=== PATIENT | male | born 1935 | race Caucasian/White ===

== ENCOUNTER 2021-07-27 14:23 | Inpatient (IN) | payer MEDICARE ==
[~2021-07-27] VITALS: Ht 185.4 cm; Wt 83.6 kg
[2021-07-27] VITALS (10 sets, daily range): BP systolic 168–195; BP diastolic 69–95
[2021-07-27] MEDS ORDERED: normal saline 1000ml 1,000 ML IV ONE (14:50)
[2021-07-27] MEDS ORDERED: FENTANYL CITRATE/D5W/PF 100 ML IV PRN (14:55)
[2021-07-27] MEDS ORDERED: DOPamine 400mg/D5W 250ml 250 ML IV PRN ×2 (14:55→14:59)
[2021-07-27 15:07] LABS: BASOPHILS % (AUTO) 0.1 % (0-1); EOSINOPHILS % (AUTO) 0 % (0-6); HEMATOCRIT 32.9 % (42.0-52.0); HEMOGLOBIN 11.3 g/dl (14.0-17.9); LYMPHOCYTES # (AUTO) 0.6 X10'3 (1.1-4.8); LYMPHOCYTES % (AUTO) 8.8 % (21-51); MEAN CORPUSCULAR HEMOGLOBIN 34.2 PG (27.0-31.0); MEAN CORPUSCULAR HGB CONC 34.3 g/dL (33.0-36.5); MEAN CORPUSCULAR VOLUME 99.8 FL (78-98); MEAN PLATELET VOLUME 8.9 FL (7.4-10.4); MONOCYTES # (AUTO) 0.5 X10'3 (0-0.9); MONOCYTES % (AUTO) 6.9 % (2-12); NEUTROPHILS # (AUTO) 5.9 X10'3 (1.8-7.7); NEUTROPHILS % (AUTO) 84.2 % (42-75); PLATELET COUNT 132 X10'3 (140-440); RED BLOOD COUNT 3.29 X10'6 (4.70-6.10); RED CELL DISTRIBUTION WIDTH 13.5 % (11.5-14.5)
--- NOTE | 2021-07-27 15:09 | NUR ---
[phone] KENROY ANIKET (DAUGHTER) PLEASE CALL WHEN AVAILABLE
[2021-07-27] MEDS ORDERED: FENTANYL-0.9 % NACL/PF 100 ML IV PRN (15:11)
[2021-07-27 15:14] LABS: APTT 27 SECONDS (22-32)
[2021-07-27 15:16] LABS: ALANINE AMINOTRANSFERASE 20 U/L (12-78); ALBUMIN/GLOBULIN RATIO 0.9 (1.1-1.5); ALKALINE PHOSPHATASE 17 IU/L (46-116); ANION GAP 8 (8-16); ASPARTATE AMINO TRANSFERASE 26 U/L (10-37); BILIRUBIN,TOTAL 1.1 MG/DL (0.1-1.0); BLOOD UREA NITROGEN 35 MG/DL (7-18); BUN/CREATININE RATIO 25.5 (5.4-32.0); CALCIUM 7.7 MG/DL (8.5-10.1); CHLORIDE 106 MMOL/L (99-107); CREATININE 1.37 MG/DL (0.60-1.10); GLUCOSE 173 MG/DL (70-104); POTASSIUM 3.7 MMOL/L (3.5-5.1); SODIUM 141 MMOL/L (135-145); TOTAL CARBON DIOXIDE 26.7 MMOL/L (24-32); TOTAL PROTEIN 6.2 G/DL (6.4-8.2); eGFR 50 ML/MIN
[2021-07-27 15:25] LABS: MAGNESIUM 2.2 MG/DL (1.5-2.4)
[2021-07-27] MEDS ORDERED: midazolam 1 mg/ML 2ml injection ONE ×2 (16:19→17:26)
[2021-07-27] MEDS ORDERED: fentaNYL/PF 50MCG/1 ML 2ML syringe ONE (16:19)
[2021-07-27] MEDS ORDERED: ceFAZolin 1000mg inj ONE (16:19)
[2021-07-27] MEDS ORDERED: LIDOcaine 1% w/EPI 1:100,000 30ml vial (MDV) ONE (16:21)
[2021-07-27] MEDS ORDERED: ceFAZolin 1GM/D5W- ADD-VANTAGE 50 ML IV ONE (16:54)
[2021-07-27] MEDS ORDERED: potassium Cl 20 mEq SR tablet PO PRN ×2 (17:50)
[2021-07-27] MEDS ORDERED: magnesium Cl slow-release 64mg tablet PO PRN (17:50)
[2021-07-27] MEDS: normal saline 1000ml 1,000 ML IV SCH ×2 (17:50→19:20)
[2021-07-27] MEDS ORDERED: HYDROcodone/acetaminophen 10/325mg tab PO PRN (17:50)
[2021-07-27] MEDS ORDERED: metoclopramide 5 mg/ml inj IV PRN (17:50)
[2021-07-27] MEDS ORDERED: ondansetron 4mg rapidly disintigrating tab PO PRN (17:50)
[2021-07-27] MEDS ORDERED: ondansetron/PF 4mg/2ml inj IV PRN (17:50)
[2021-07-27] MEDS ORDERED: magnesium hydroxide 30ml (MOM) UD suspension PO PRN (17:50)
[2021-07-27] MEDS ORDERED: potassium CL 10mEq/100ml bag 100 ML IV PRN (17:50)
[2021-07-27] MEDS ORDERED: magnesium 4gm in 100ml NS 100 ML IV PRN (17:50)
[2021-07-27] MEDS ORDERED: magnesium 2GM in 50ml NS 50 ML IV PRN (17:50)
[2021-07-27] MEDS ORDERED: mag hydrox/Alum hydrox/simeth 30ml oral suspension PO PRN (17:50)
[2021-07-27] MEDS ORDERED: HYDROcodone/acetaminophen 5mg/325mg tablet PO PRN ×2 (17:50→19:20)
[2021-07-27] MEDS ORDERED: NO HOME MEDS PO (18:33)
[2021-07-27] MEDS: K and/or MAG REPLACEMENT MC SCH (20:00)
[2021-07-27] MEDS: docusate sod 100mg capsule PO SCH (20:00)
--- NOTE | 2021-07-27 20:58 | NUR ---
Page sent to Dr Dave PAGER ID: [phone] MESSAGE: [phone] [place] [address] Pt's post insertion of pacemaker has a blood pressure of 195/69. Has no PRN's for elevated BP. Please be advised. Thank you
--- NOTE | 2021-07-27 22:07 | NUR ---
Page sent to Dr. Dave PAGER ID: [phone] MESSAGE: [phone] MarcelJoseph [phone] Pt's disoriented & agitated. Has a sling on his left arm to refrain him from lifting his arm above his shoulder but this hasn't helped 100%. Also I would like to get an update on blood pressure med for him.Thanks
[2021-07-27] MEDS: temazepam 15mg capsule PO PRN (22:37)
--- NOTE | 2021-07-27 22:58 | NUR ---
Page sent to Dr. Dave PAGER ID: [phone] MESSAGE: [phone] Joseph Rod [phone] Pt is very agitated and confused. He has started hitting the sitter and has been attempting to get off the bed. He has no PRN medication for anxiety/agitation in his emar. Please be advised. Thank you
[2021-07-27] MEDS ORDERED: lisinopril 10 MG tablet PO ONE (23:05)
--- NOTE | 2021-07-27 23:30 | NUR ---
PT WAS VERY AGITIATED, HITTING NURSE AND AIDE. HE STATED HE NEED TO VOID. HE HAD A SADLER. IT APPEARED TO BE WORKING INITIALLY, BUT AFTER A SHORT WHILE IT HE WAS STILL FEELING PRESSURE AND VOIDING AROUND CATHETER. SADLER D'C AND PT STATED HE WAS MUCH MORE COMFORTABLE AND SETTLED DOWN AND RESTED.
[2021-07-28] VITALS (14 sets, daily range): BP systolic 129–187; BP diastolic 57–103
--- NOTE | 2021-07-28 | NUR ---
Page sent to Dr. Dave PAGER ID: [phone] MESSAGE: [phone] Joseph Champion [phone] Pharmacist called and said that the only available Geodon they have is 20 mg and it comes in capsules. You ordered Geodon 10 mg. Please be advised. Thank you
[2021-07-28] MEDS ORDERED: ziprasidone IM 20mg inj **IM only IM ONE ×4 (00:05→17:00)
[2021-07-28] MEDS: ceFAZolin/D5W- 1GM premix 50 ML IV SCH ×3 (00:18→15:49)
[2021-07-28] MEDS: normal saline 1000ml 1,000 ML IV SCH ×5 (03:50→23:50)
--- NOTE | 2021-07-28 04:21 | NUR ---
Page sent to Dr. Dave PAGER ID: [phone] MESSAGE: [phone] Joseph Rod [phone] Pt is increasingly agitated. Geodon 10mg wasn't given as such med is only available in 20mg capsule. Pt would benefit from any anti-anxiety agents. Perhaps, ativan? Please be advised. Thank you
--- NOTE | 2021-07-28 06:38 | NUR ---
Problems reprioritized. Patient report given, questions answered & plan of care reviewed with Sapphire MORLEY.
[2021-07-28 06:53] LABS: HEMATOCRIT 32.4 % (42.0-52.0); HEMOGLOBIN 11.2 g/dl (14.0-17.9); MEAN CORPUSCULAR HEMOGLOBIN 34.7 PG (27.0-31.0); MEAN CORPUSCULAR VOLUME 100.2 FL (78-98); RED BLOOD COUNT 3.23 X10'6 (4.70-6.10)
[2021-07-28 06:54] LABS: MEAN CORPUSCULAR HGB CONC 34.7 g/dL (33.0-36.5); MEAN PLATELET VOLUME 8.3 FL (7.4-10.4); PLATELET COUNT 141 X10'3 (140-440); RED CELL DISTRIBUTION WIDTH 13.7 % (11.5-14.5)
[2021-07-28 07:13] LABS: ALBUMIN 2.9 G/DL (3.4-5.0); ANION GAP 9 (8-16); BLOOD UREA NITROGEN 32 MG/DL (7-18); BUN/CREATININE RATIO 24.4 (5.4-32.0); CALCIUM 8.1 MG/DL (8.5-10.1); CHLORIDE 108 MMOL/L (99-107); CHOL/HDL RATIO 2.8 (0.00-4.99); CHOLESTEROL 171 MG/DL (0-200); CREATININE 1.31 MG/DL (0.60-1.10); GLUCOSE 106 MG/DL (70-104); HDL CHOLESTEROL 62 MG/DL (35-60); LDL CHOLESTEROL 91 MG/DL (50-100); MAGNESIUM 2.3 MG/DL (1.5-2.4); POTASSIUM 3.8 MMOL/L (3.5-5.1); SODIUM 144 MMOL/L (135-145); TOTAL CARBON DIOXIDE 26.9 MMOL/L (24-32); TRIGLYCERIDES 43 MG/DL (20-135); eGFR 52 ML/MIN
[2021-07-28] MEDS: docusate sod 100mg capsule PO SCH ×2 (08:00→19:55)
[2021-07-28] MEDS: K and/or MAG REPLACEMENT MC SCH ×2 (08:00→20:00)
[2021-07-28 08:13] LABS: BASOPHILS % (AUTO) 0 % (0-1); EOSINOPHILS % (AUTO) 0.1 % (0-6); LYMPHOCYTES # (AUTO) 0.8 X10'3 (1.1-4.8); MONOCYTES # (AUTO) 0.8 X10'3 (0-0.9); MONOCYTES % (AUTO) 11.3 % (2-12); NEUTROPHILS # (AUTO) 5.3 X10'3 (1.8-7.7); NEUTROPHILS % (AUTO) 76.6 % (42-75)
--- NOTE | 2021-07-28 10:49 | NUR ---
Bladder scanner showed 241 ml
--- NOTE | 2021-07-28 11:45 | NUR ---
PAGER ID: [phone] MESSAGE: Patient Joseph Champion's BP still continues to be elevated at 171/68 HR 67. Sapphire ext [phone]
[2021-07-28] MEDS: lisinopril 20mg tablet PO SCH (12:00)
[2021-07-28] MEDS: amLODIPine 5mg tablet PO SCH (12:00)
--- NOTE | 2021-07-28 13:23 | NUR ---
PAGER ID: [phone] MESSAGE: Janneth Champion room 3010 needs restraint order LUISA, is pulling at surgical site and is trying to strike at the sitter. Sapphire Ext [phone]
[2021-07-28] MEDS: LORazepam 2 mg/ml vial IV PRN (15:49)
--- NOTE | 2021-07-28 18:30 | NUR ---
Patient in room PCU 3010. I have received report from Sapphire MORLEY and had the opportunity to ask questions and assume patient care.
--- NOTE | 2021-07-28 18:48 | NUR ---
Problems reprioritized. Patient report given, questions answered & plan of care reviewed with Natalia MORLEY.
[2021-07-29] MEDS: LORazepam 2 mg/ml vial IV PRN ×2 (00:31→21:43)
[2021-07-29] MEDS: normal saline 1000ml 1,000 ML IV SCH ×3 (01:20→21:20)
[2021-07-29 02:00] VITALS: BP 158/89
[2021-07-29 06:00] VITALS: BP 152/79
--- NOTE | 2021-07-29 06:27 | NUR ---
Problems reprioritized. Patient report given, questions answered & plan of care reviewed with Arsh MORLEY.
[2021-07-29 06:53] LABS: HEMATOCRIT 35.9 % (42.0-52.0); HEMOGLOBIN 12.3 g/dl (14.0-17.9); MEAN CORPUSCULAR HEMOGLOBIN 34.2 PG (27.0-31.0); MEAN CORPUSCULAR HGB CONC 34.4 g/dL (33.0-36.5); MEAN CORPUSCULAR VOLUME 99.4 FL (78-98); MEAN PLATELET VOLUME 8.3 FL (7.4-10.4); PLATELET COUNT 162 X10'3 (140-440); RED BLOOD COUNT 3.61 X10'6 (4.70-6.10); RED CELL DISTRIBUTION WIDTH 13.6 % (11.5-14.5); WHITE BLOOD COUNT 7.7 X10'3 (4.5-11.0)
[2021-07-29 07:21] LABS: ANION GAP 9 (8-16); BLOOD UREA NITROGEN 25 MG/DL (7-18); BUN/CREATININE RATIO 21.4 (5.4-32.0); CALCIUM 8.6 MG/DL (8.5-10.1); CHLORIDE 109 MMOL/L (99-107); CREATININE 1.17 MG/DL (0.60-1.10); GLUCOSE 119 MG/DL (70-104); MAGNESIUM 2.2 MG/DL (1.5-2.4); POTASSIUM 4.3 MMOL/L (3.5-5.1); SODIUM 146 MMOL/L (135-145); TOTAL CARBON DIOXIDE 28.3 MMOL/L (24-32); eGFR 60 ML/MIN
[2021-07-29] MEDS: K and/or MAG REPLACEMENT MC SCH ×2 (08:00→20:00)
[2021-07-29] MEDS: amLODIPine 5mg tablet PO SCH (08:18)
[2021-07-29] MEDS: lisinopril 20mg tablet PO SCH (08:18)
[2021-07-29] MEDS: docusate sod 100mg capsule PO SCH ×2 (08:18→21:33)
[2021-07-29 11:00] VITALS: BP 153/76
[2021-07-29 15:00] VITALS: BP 141/87
[2021-07-29 18:00] VITALS: BP 154/85
--- NOTE | 2021-07-29 18:18 | NUR ---
Patient in room PCU 3010. I have received report from Arsh MORLEY and had the opportunity to ask questions and assume patient care.
[2021-07-29] MEDS: cephalexin 500mg capsule PO SCH (21:33)
[2021-07-29 22:00] VITALS: BP 161/87
[2021-07-30 02:00] VITALS: BP 170/79
[2021-07-30] MEDS: normal saline 1000ml 1,000 ML IV SCH ×4 (05:50→18:00)
[2021-07-30 06:00] VITALS: BP 168/70
--- NOTE | 2021-07-30 06:12 | NUR ---
Problems reprioritized. Patient report given, questions answered & plan of care reviewed with Arsh MORLEY.
[2021-07-30 07:12] LABS: HEMATOCRIT 37.8 % (42.0-52.0); HEMOGLOBIN 12.8 g/dl (14.0-17.9); MEAN CORPUSCULAR HEMOGLOBIN 33.7 PG (27.0-31.0); MEAN CORPUSCULAR VOLUME 99.1 FL (78-98); MEAN PLATELET VOLUME 8.1 FL (7.4-10.4); PLATELET COUNT 154 X10'3 (140-440); RED BLOOD COUNT 3.81 X10'6 (4.70-6.10); RED CELL DISTRIBUTION WIDTH 13.9 % (11.5-14.5); WHITE BLOOD COUNT 7.7 X10'3 (4.5-11.0)
[2021-07-30 07:24] LABS: ALBUMIN 2.5 G/DL (3.4-5.0); ANION GAP 6 (8-16); BLOOD UREA NITROGEN 23 MG/DL (7-18); BUN/CREATININE RATIO 20.2 (5.4-32.0); CALCIUM 8.3 MG/DL (8.5-10.1); CHLORIDE 108 MMOL/L (99-107); CREATININE 1.14 MG/DL (0.60-1.10); GLUCOSE 104 MG/DL (70-104); MAGNESIUM 2.1 MG/DL (1.5-2.4); POTASSIUM 3.7 MMOL/L (3.5-5.1); SODIUM 142 MMOL/L (135-145); eGFR 61 ML/MIN
[2021-07-30] MEDS: K and/or MAG REPLACEMENT MC SCH ×2 (08:00→20:00)
[2021-07-30] MEDS: amLODIPine 5mg tablet PO SCH (08:30)
[2021-07-30] MEDS: cephalexin 500mg capsule PO SCH ×2 (08:30→19:24)
[2021-07-30] MEDS: docusate sod 100mg capsule PO SCH ×2 (08:30→19:24)
[2021-07-30] MEDS: lisinopril 20mg tablet PO SCH (08:30)
[2021-07-30 11:00] VITALS: BP 164/61
[2021-07-30] MEDS ORDERED: NOR5T PO (13:37)
[2021-07-30] MEDS ORDERED: LISI20TA28 PO (13:37)
[2021-07-30] MEDS ORDERED: CEPH-585 PO (13:37)
[2021-07-30 15:00] VITALS: BP 163/64
[2021-07-30 18:00] VITALS: BP 174/88
--- NOTE | 2021-07-30 19:17 | NUR ---
Problems reprioritized. Patient report given, questions answered & plan of care reviewed with ANGELICA MORLEY.
[2021-07-30] MEDS: lactobacillus rhamnosus 10,000 MMU CELLS/CAPSULE PO SCH (19:24)
[2021-07-30] MEDS: HYDROcodone/acetaminophen 10/325mg tab PO PRN (19:24)
[2021-07-30] MEDS: LORazepam 2 mg/ml vial IV PRN (20:30)
[2021-07-30 22:00] VITALS: BP 168/85
[2021-07-31] MEDS: normal saline 1000ml 1,000 ML IV SCH ×6 (01:50→21:50)
[2021-07-31 02:00] VITALS: BP 175/87
[2021-07-31] MEDS: LORazepam 2 mg/ml vial IV PRN (05:08)
--- NOTE | 2021-07-31 06:33 | NUR ---
Problems reprioritized. Patient report given, questions answered & plan of care reviewed with Margarita MORLEY .
--- NOTE | 2021-07-31 07:19 | NUR ---
Patient in room PCU 3010. I have received report from Abigail MORLEY and had the opportunity to ask questions and assume patient care.
[2021-07-31 07:20] VITALS: BP 142/90
[2021-07-31] MEDS: K and/or MAG REPLACEMENT MC SCH ×2 (08:00→20:00)
[2021-07-31 08:15] LABS: ALBUMIN 2.5 G/DL (3.4-5.0); ANION GAP 11 (8-16); BLOOD UREA NITROGEN 31 MG/DL (7-18); BUN/CREATININE RATIO 28.2 (5.4-32.0); CALCIUM 8.5 MG/DL (8.5-10.1); CHLORIDE 109 MMOL/L (99-107); GLUCOSE 124 MG/DL (70-104); MAGNESIUM 2.1 MG/DL (1.5-2.4); POTASSIUM 3.9 MMOL/L (3.5-5.1); SODIUM 144 MMOL/L (135-145); TOTAL CARBON DIOXIDE 23.6 MMOL/L (24-32); eGFR 64 ML/MIN
[2021-07-31 08:42] LABS: HEMATOCRIT 38.3 % (42.0-52.0); HEMOGLOBIN 13.1 g/dl (14.0-17.9); MEAN CORPUSCULAR HEMOGLOBIN 33.8 PG (27.0-31.0); MEAN CORPUSCULAR HGB CONC 34.2 g/dL (33.0-36.5); MEAN PLATELET VOLUME 9.1 FL (7.4-10.4); PLATELET COUNT 148 X10'3 (140-440); RED BLOOD COUNT 3.87 X10'6 (4.70-6.10); RED CELL DISTRIBUTION WIDTH 14.1 % (11.5-14.5); WHITE BLOOD COUNT 9.8 X10'3 (4.5-11.0)
[2021-07-31] MEDS: lactobacillus rhamnosus 10,000 MMU CELLS/CAPSULE PO SCH ×2 (09:02→20:00)
[2021-07-31] MEDS: lisinopril 20mg tablet PO SCH (09:02)
[2021-07-31] MEDS: cephalexin 500mg capsule PO SCH ×2 (09:02→20:00)
[2021-07-31] MEDS: docusate sod 100mg capsule PO SCH ×2 (09:03→20:00)
[2021-07-31] MEDS: amLODIPine 5mg tablet PO SCH (09:03)
[2021-07-31 11:31] VITALS: BP 168/82
[2021-07-31 16:00] VITALS: BP 164/90
[2021-07-31 18:00] VITALS: BP 176/90
--- NOTE | 2021-07-31 18:30 | NUR ---
Received pt in bed lethargic and confused at the same time, pt has removed his access and gown. Pt arousal to stimuli , PM care done and linen change, condom cath placed. Charge nurse notified of pt's need for a sitter.
--- NOTE | 2021-07-31 18:51 | NUR ---
Problems reprioritized. Patient report given, questions answered & plan of care reviewed with Abigail MORLEY[].
[2021-07-31 22:00] VITALS: BP 107/83
[2021-08-01 02:00] VITALS: BP 156/78
--- NOTE | 2021-08-01 03:30 | NUR ---
Pt still lethargic with period of confusion and mild agitation , continues to remove lines , frequent rounding in progress. Left arm in sling as ordered. IV fluid in progress.
[2021-08-01 06:00] VITALS: BP 166/94
[2021-08-01 07:07] LABS: HEMATOCRIT 36.2 % (42.0-52.0); HEMOGLOBIN 12.2 g/dl (14.0-17.9); MEAN CORPUSCULAR HEMOGLOBIN 33.5 PG (27.0-31.0); MEAN CORPUSCULAR HGB CONC 33.6 g/dL (33.0-36.5); MEAN CORPUSCULAR VOLUME 99.6 FL (78-98); MEAN PLATELET VOLUME 8.4 FL (7.4-10.4); PLATELET COUNT 163 X10'3 (140-440); RED BLOOD COUNT 3.63 X10'6 (4.70-6.10); RED CELL DISTRIBUTION WIDTH 13.8 % (11.5-14.5); WHITE BLOOD COUNT 9.2 X10'3 (4.5-11.0)
[2021-08-01 07:28] LABS: ALBUMIN 2.3 G/DL (3.4-5.0); ANION GAP 8 (8-16); BLOOD UREA NITROGEN 31 MG/DL (7-18); BUN/CREATININE RATIO 26.7 (5.4-32.0); CALCIUM 8.2 MG/DL (8.5-10.1); CHLORIDE 113 MMOL/L (99-107); CREATININE 1.16 MG/DL (0.60-1.10); GLUCOSE 111 MG/DL (70-104); SODIUM 148 MMOL/L (135-145); TOTAL CARBON DIOXIDE 26.7 MMOL/L (24-32); eGFR 60 ML/MIN
[2021-08-01 07:30] LABS: POTASSIUM 3.6 MMOL/L (3.5-5.1)
[2021-08-01] MEDS: normal saline 1000ml 1,000 ML IV SCH ×4 (07:50→19:58)
[2021-08-01] MEDS: K and/or MAG REPLACEMENT MC SCH ×2 (08:00→20:00)
[2021-08-01] MEDS: lactobacillus rhamnosus 10,000 MMU CELLS/CAPSULE PO SCH ×2 (08:32→19:52)
[2021-08-01] MEDS: cephalexin 500mg capsule PO SCH ×2 (08:32→19:52)
[2021-08-01] MEDS: lisinopril 20mg tablet PO SCH (08:32)
[2021-08-01] MEDS: docusate sod 100mg capsule PO SCH ×2 (08:32→19:52)
[2021-08-01] MEDS: amLODIPine 5mg tablet PO SCH (08:33)
[2021-08-01 11:00] VITALS: BP 135/71
[2021-08-01] MEDS: acetaminophen 325mg tablet PO PRN (14:29)
[2021-08-01] MEDS: hydrOXYzine 10 MG tablet PO PRN (14:33)
--- NOTE | 2021-08-01 16:00 | NUR ---
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 Placed on pureed/nectar thick/heart healthy diet per CANE PILER/MD recs PO ~25% avg meals past 4 days w/ decline to 0% since last night not meeting needs. RD recommends Ensure Enlive TIDWM; MD notified. Would benefit from liberalizing to regular diet if MD agreeable given poor PO trends w/ lipid panel WNL and no cardiac hx in H&P. Andres 12 w/ skin intact per EMR. LBM 07/31 receiving routine colace. Will continue to monitor for PO trends and additional nutrition intervention needs. Rec: 1. liberalize to regular/pureed/nectar thick diet given poor PO trends; encourage PO receiving total assistance w/ meals 2. Ensure Enlive TIDWM; nectar thick per CANE PILER recs; pending MD verification in EMR 3. routine bowel care 4. weekly wts Addendum: 08/01/21 at [address] Amended: Links added.
[2021-08-01 17:04] VITALS: BP 158/93
[2021-08-01 18:00] VITALS: BP 168/80
[2021-08-01] MEDS: lactose-reduced food (Ensure Enlive) - 237ml bottle PO SCH (18:10)
--- NOTE | 2021-08-01 18:30 | NUR ---
Pt in bed AAOx1 daughter at bedside conversing with pt. Radha presents. Daughter complaining that the doctor has not informed the family about the pt's test result and discharge planning. Daughter instructed to call her brother for update since information was given to him about pt' status. Call to her brother was made for the information about test result.and I left the room after checking the pt.
--- NOTE | 2021-08-01 18:32 | NUR ---
Problems reprioritized. Patient report given, questions answered & plan of care reviewed with Paz MORLEY.
[2021-08-01] MEDS: HYDROcodone/acetaminophen 10/325mg tab PO PRN (19:53)
[2021-08-01 22:00] VITALS: BP 152/87
[2021-08-02 02:00] VITALS: BP 162/85
--- NOTE | 2021-08-02 02:30 | NUR ---
temp 100.[address] Carranza; order given. Pt pending CBC, blood and urine culture. Condom catheter applied for urine collection. and chest X Ray done. Tylenol given . Continue to monitor pt's temperature
[2021-08-02] MEDS: acetaminophen 325mg tablet PO PRN ×2 (03:03→14:55)
[2021-08-02] MEDS: normal saline 1000ml 1,000 ML IV SCH ×4 (03:50→15:20)
--- NOTE | 2021-08-02 05:30 | NUR ---
Pt voided; urine and CBC collected and sent to lab. AM care, linen change done. Pt asleep arousal PRN. No sings of distress noted
[2021-08-02 05:41] LABS: CLARITY,URINE CLEAR (Clear); COLOR,URINE YELLOW (Yellow); GLUCOSE, URINE NEGATIVE (Neg); KETONES,URINE TRACE mg/dl (Neg); LEUKOCYTE ESTERASE ,URINE NEGATIVE (Neg); NITRITES, URINE NEGATIVE (Neg); OCCULT BLOOD,URINE LARGE (Neg); PROTEIN,URINE >=300 mg/dl (Neg)
[2021-08-02 05:45] LABS: EOSINOPHILS % (AUTO) 0.3 % (0-6); LYMPHOCYTES # (AUTO) 1.9 X10'3 (1.1-4.8)
[2021-08-02 05:48] LABS: BASOPHILS % (AUTO) 0.4 % (0-1); HEMATOCRIT 36.9 % (42.0-52.0); HEMOGLOBIN 12.5 g/dl (14.0-17.9); LYMPHOCYTES % (AUTO) 16.5 % (21-51); MEAN CORPUSCULAR HEMOGLOBIN 33.6 PG (27.0-31.0); MEAN CORPUSCULAR HGB CONC 33.8 g/dL (33.0-36.5); MEAN CORPUSCULAR VOLUME 99.6 FL (78-98); MEAN PLATELET VOLUME 8.8 FL (7.4-10.4); MONOCYTES # (AUTO) 1.2 X10'3 (0-0.9); NEUTROPHILS # (AUTO) 8.4 X10'3 (1.8-7.7); NEUTROPHILS % (AUTO) 72.8 % (42-75); PLATELET COUNT 162 X10'3 (140-440); RED CELL DISTRIBUTION WIDTH 14.2 % (11.5-14.5); WHITE BLOOD COUNT 11.5 X10'3 (4.5-11.0)
[2021-08-02 05:58] LABS: UA COLLECTION TYPE NON-SPECIFIED
[2021-08-02 05:59] LABS: BACTERIA,URINE NONE SEEN /HPF (Neg); HYALINE CASTS 0-3 /LPF (NEGATIVE); MUCUS STRANDS FEW /LPF (Neg); RBC,URINE 0-2 /HPF (0-2); SQUAMOUS EPITHELIAL CELL,UR FEW /LPF (FEW); WBC,URINE 0-4 /HPF (0-4)
--- NOTE | 2021-08-02 06:28 | NUR ---
Patient in room PCU 3025. I have received report from MILLI Mullen and had the opportunity to ask questions and assume patient care.
[2021-08-02 06:45] VITALS: BP 152/64
[2021-08-02] MEDS: K and/or MAG REPLACEMENT MC SCH ×2 (07:11→20:00)
[2021-08-02] MEDS: CefTRIAXone/D5W-Rocephin 1gm 50 ML IV SCH (07:20)
[2021-08-02] MEDS: lactobacillus rhamnosus 10,000 MMU CELLS/CAPSULE PO SCH ×2 (07:25→19:07)
[2021-08-02] MEDS: cephalexin 500mg capsule PO SCH (07:25)
[2021-08-02] MEDS: lisinopril 20mg tablet PO SCH (07:25)
[2021-08-02] MEDS: docusate sod 100mg capsule PO SCH ×2 (07:25→19:07)
[2021-08-02] MEDS: amLODIPine 5mg tablet PO SCH (07:25)
[2021-08-02] MEDS: lactose-reduced food (Ensure Enlive) - 237ml bottle PO SCH ×3 (08:00→18:39)
--- NOTE | 2021-08-02 10:45 | NUR ---
Patient removes gown and per sitter at bedside with patient's room mate, patient removes left arm sling when on. Gown is placed back on patient but patient continues to remove gown. Patient does allow for gown and bedsheet to be pulled up and placed on top but does not like gown placed properly on. Patient appears to be resting comfortably. Will continue to monitor.
[2021-08-02 11:00] VITALS: BP 153/77
[2021-08-02 14:55] VITALS: BP 152/69
--- NOTE | 2021-08-02 15:47 | NUR ---
PAGER ID: [phone] MESSAGE: [phone]- Joseph Champion- [phone] temp 101.3 ax. Tylenol given. Cool wash cloths to forehead and chest. Cxray was done at 0300 and shows pneumonia. Pt on Keflex PO and Rocephin. Thank you- Coleen [phone]
[2021-08-02] MEDS: hydrOXYzine 10 MG tablet PO PRN (17:48)
--- NOTE | 2021-08-02 17:58 | NUR ---
Patient is alert and awake. He is only oriented to his name. Patient asking where he is and why he is here. Oriented patient and explained to patient why he was admitted and that his son and daughter are aware. Also let him know that daughter Christina was here to visit earlier. Patient appears to be anxious and shaky stating "they did this to me. They wanted me here. This is ridiculous." Patient requested that his daughter be called. Sitter called and left message for daughter Christina to call back. Patient able to feed self and drank a pitcher of water. Patient given atarax of anxiety as ordered. Patient eating dinner at this time. Will continue to monitor.
[2021-08-02 18:40] VITALS: BP 142/84
--- NOTE | 2021-08-02 18:40 | NUR ---
Patient in room U 3025. I have received report from MILLI Horne and had the opportunity to ask questions and assume patient care. Addendum: 08/02/21 at 1934 by Mariluz Fisher RN Amended: Links added.
--- NOTE | 2021-08-02 18:40 | NUR ---
Problems reprioritized. Patient report given, questions answered & plan of care reviewed with MILLI Mcallister.
[2021-08-02] MEDS: dextrose 5%-1/4 normal saline 1,000 ML IV SCH (18:56)
--- NOTE | 2021-08-02 19:28 | NUR ---
Pt repositioned,ate few bites of dinner and some ensure, will try again. drinking water without difficulty. alert, confused to place and time, demetris knows in hospital. refuses oral care at this time. Addendum: 08/02/21 at 1933 by Mariluz Fisher RN Amended: Links added.
[2021-08-02 22:00] VITALS: BP 148/73
[2021-08-03] MEDS: normal saline 1000ml 1,000 ML IV SCH ×3 (00:34→19:59)
[2021-08-03 02:30] VITALS: BP 150/66
--- NOTE | 2021-08-03 03:00 | NUR ---
Pt feeling warm to touch, temp retaken 101.1 axillary. tylenol given, pt very aggitated, atarax given with pudding. drank water without difficulty. Addendum: 08/03/21 at 0338 by Mariluz Fisher RN Amended: Links added.
[2021-08-03] MEDS: acetaminophen 325mg tablet PO PRN ×3 (03:09→23:36)
[2021-08-03] MEDS: hydrOXYzine 10 MG tablet PO PRN (03:10)
[2021-08-03] MEDS: dextrose 5%-1/4 normal saline 1,000 ML IV SCH ×2 (04:50→08:11)
[2021-08-03 06:00] VITALS: BP 143/85
--- NOTE | 2021-08-03 06:17 | NUR ---
Problems reprioritized. Patient report given, questions answered & plan of care reviewed with MILLI Anderson. Addendum: 08/03/21 at 0617 by Mariluz Fisher RN Amended: Links added.
--- NOTE | 2021-08-03 06:35 | NUR ---
Patient in room PCU 3025. I have received report from Ary MORLEY and had the opportunity to ask questions and assume patient care.
[2021-08-03] MEDS: K and/or MAG REPLACEMENT MC SCH ×3 (08:00→19:58)
[2021-08-03] MEDS: lactose-reduced food (Ensure Enlive) - 237ml bottle PO SCH ×3 (08:00→18:00)
[2021-08-03] MEDS: CefTRIAXone/D5W-Rocephin 1gm 50 ML IV SCH (09:25)
[2021-08-03] MEDS: amLODIPine 5mg tablet PO SCH (09:27)
[2021-08-03] MEDS: lisinopril 20mg tablet PO SCH (09:27)
[2021-08-03] MEDS: lactobacillus rhamnosus 10,000 MMU CELLS/CAPSULE PO SCH ×2 (09:27→21:58)
[2021-08-03] MEDS: docusate sod 100mg capsule PO SCH ×2 (09:27→21:58)
[2021-08-03 10:55] LABS: BASOPHILS % (AUTO) 0.2 % (0-1); EOSINOPHILS # (AUTO) 0.2 X10'3 (0-0.9); EOSINOPHILS % (AUTO) 1.9 % (0-6); HEMATOCRIT 33.2 % (42.0-52.0); HEMOGLOBIN 11.3 g/dl (14.0-17.9); LYMPHOCYTES # (AUTO) 1.7 X10'3 (1.1-4.8); LYMPHOCYTES % (AUTO) 19.7 % (21-51); MEAN CORPUSCULAR HGB CONC 34.1 g/dL (33.0-36.5); MEAN CORPUSCULAR VOLUME 99.7 FL (78-98); MEAN PLATELET VOLUME 8.4 FL (7.4-10.4); MONOCYTES # (AUTO) 0.8 X10'3 (0-0.9); MONOCYTES % (AUTO) 9.2 % (2-12); NEUTROPHILS # (AUTO) 5.8 X10'3 (1.8-7.7); PLATELET COUNT 167 X10'3 (140-440); RED BLOOD COUNT 3.33 X10'6 (4.70-6.10); RED CELL DISTRIBUTION WIDTH 14.2 % (11.5-14.5); WHITE BLOOD COUNT 8.4 X10'3 (4.5-11.0)
[2021-08-03 10:58] VITALS: BP 140/69
[2021-08-03 11:18] LABS: ALANINE AMINOTRANSFERASE 17 U/L (12-78); ALBUMIN 2.1 G/DL (3.4-5.0); ALBUMIN/GLOBULIN RATIO 0.6 (1.1-1.5); ALKALINE PHOSPHATASE 18 IU/L (46-116); ANION GAP 6 (8-16); ASPARTATE AMINO TRANSFERASE 26 U/L (10-37); BILIRUBIN,TOTAL 0.7 MG/DL (0.1-1.0); BLOOD UREA NITROGEN 25 MG/DL (7-18); CALCIUM 7.8 MG/DL (8.5-10.1); CHLORIDE 109 MMOL/L (99-107); CREATININE 1.25 MG/DL (0.60-1.10); GLUCOSE 142 MG/DL (70-104); POTASSIUM 3.1 MMOL/L (3.5-5.1); SODIUM 143 MMOL/L (135-145); TOTAL CARBON DIOXIDE 28.2 MMOL/L (24-32); TOTAL PROTEIN 5.4 G/DL (6.4-8.2); eGFR 55 ML/MIN
[2021-08-03 15:00] VITALS: BP 149/79
--- NOTE | 2021-08-03 15:47 | NUR ---
Paged Dr. Mckinney PAGER ID: [phone] MESSAGE: LAYA Anderson RN ext [phone]. RE: Joseph Champion. Patient K 3.1 today. He also did not have BM since 07/27/21. Can we have order for K replacement protocol and Dulcolax suppository PRN?
[2021-08-03] MEDS ORDERED: potassium Cl 40MEQ/1/2NS 520ml 520 ML IV PRN (15:50)
[2021-08-03] MEDS ORDERED: magnesium 2GM in 50ml NS 50 ML IV PRN (15:50)
[2021-08-03] MEDS ORDERED: magnesium Cl slow-release 64mg tablet PO PRN (15:50)
[2021-08-03] MEDS ORDERED: potassium Cl 20 mEq SR tablet PO PRN (15:50)
[2021-08-03] MEDS ORDERED: magnesium 4gm in 100ml NS 100 ML IV PRN (15:50)
[2021-08-03] MEDS ORDERED: bisacodyl 10mg suppository rectal RC PRN (15:50)
[2021-08-03] MEDS: potassium Cl 20 mEq SR tablet PO PRN (16:03)
--- NOTE | 2021-08-03 17:00 | NUR ---
Patient expressed wish to go home but patient did not know where exactly he is at and when is his birthday. Patient still confused at this time
--- NOTE | 2021-08-03 18:47 | NUR ---
Problems reprioritized. Patient report given, questions answered & plan of care reviewed with Yaritza MORLEY.
[2021-08-03 22:00] VITALS: BP 105/75
[2021-08-04] MEDS: potassium Cl 20 mEq SR tablet PO PRN ×2 (00:38→05:23)
[2021-08-04 02:00] VITALS: BP 131/64
[2021-08-04] MEDS: dextrose 5%-1/4 normal saline 1,000 ML IV SCH ×2 (05:52→18:20)
[2021-08-04 06:00] VITALS: BP 130/76
--- NOTE | 2021-08-04 06:30 | NUR ---
Patient in room PCU 3025. I have received report from Yaritza MORLEY and had the opportunity to ask questions and assume patient care.
[2021-08-04 06:46] LABS: BASOPHILS % (AUTO) 0.2 % (0-1); EOSINOPHILS # (AUTO) 0.3 X10'3 (0-0.9); EOSINOPHILS % (AUTO) 3.3 % (0-6); HEMATOCRIT 33.3 % (42.0-52.0); HEMOGLOBIN 11.6 g/dl (14.0-17.9); LYMPHOCYTES # (AUTO) 1.8 X10'3 (1.1-4.8); LYMPHOCYTES % (AUTO) 22.2 % (21-51); MEAN CORPUSCULAR HEMOGLOBIN 34.2 PG (27.0-31.0); MEAN CORPUSCULAR HGB CONC 34.8 g/dL (33.0-36.5); MEAN CORPUSCULAR VOLUME 98.3 FL (78-98); MEAN PLATELET VOLUME 8.4 FL (7.4-10.4); MONOCYTES # (AUTO) 0.7 X10'3 (0-0.9); MONOCYTES % (AUTO) 8.7 % (2-12); NEUTROPHILS # (AUTO) 5.3 X10'3 (1.8-7.7); NEUTROPHILS % (AUTO) 65.6 % (42-75); PLATELET COUNT 168 X10'3 (140-440); RED BLOOD COUNT 3.38 X10'6 (4.70-6.10); RED CELL DISTRIBUTION WIDTH 13.9 % (11.5-14.5); WHITE BLOOD COUNT 8.1 X10'3 (4.5-11.0)
[2021-08-04 07:12] LABS: ALANINE AMINOTRANSFERASE 19 U/L (12-78); ALBUMIN 2.2 G/DL (3.4-5.0); ALBUMIN/GLOBULIN RATIO 0.6 (1.1-1.5); ALKALINE PHOSPHATASE 21 IU/L (46-116); ANION GAP 5 (8-16); ASPARTATE AMINO TRANSFERASE 36 U/L (10-37); BILIRUBIN,TOTAL 0.8 MG/DL (0.1-1.0); BLOOD UREA NITROGEN 25 MG/DL (7-18); BUN/CREATININE RATIO 20.2 (5.4-32.0); CHLORIDE 108 MMOL/L (99-107); CREATININE 1.24 MG/DL (0.60-1.10); GLUCOSE 102 MG/DL (70-104); POTASSIUM 3.6 MMOL/L (3.5-5.1); SODIUM 142 MMOL/L (135-145); TOTAL CARBON DIOXIDE 28.9 MMOL/L (24-32); TOTAL PROTEIN 5.7 G/DL (6.4-8.2); eGFR 56 ML/MIN
[2021-08-04] MEDS: normal saline 1000ml 1,000 ML IV SCH ×2 (07:20→16:06)
[2021-08-04] MEDS: lactose-reduced food (Ensure Enlive) - 237ml bottle PO SCH ×3 (08:00→18:17)
[2021-08-04] MEDS: K and/or MAG REPLACEMENT MC SCH ×4 (08:00→19:40)
[2021-08-04] MEDS: CefTRIAXone/D5W-Rocephin 1gm 50 ML IV SCH (08:14)
[2021-08-04] MEDS: lactobacillus rhamnosus 10,000 MMU CELLS/CAPSULE PO SCH ×2 (08:14→19:26)
[2021-08-04] MEDS: amLODIPine 5mg tablet PO SCH (08:16)
[2021-08-04] MEDS: lisinopril 20mg tablet PO SCH (08:17)
[2021-08-04] MEDS: docusate sod 100mg capsule PO SCH ×2 (08:25→19:28)
[2021-08-04 11:00] VITALS: BP 137/77
[2021-08-04 15:00] VITALS: BP 119/75
--- NOTE | 2021-08-04 17:16 | NUR ---
PAGER ID: [phone] MESSAGE: James Dave pt. in room [id number] Palmer, Adrian is screaming and that he wants to leave, I educated him on the importance of staying and is still yelling out. Thanks Mariana ASIF
[2021-08-04 18:00] VITALS: BP 141/73
--- NOTE | 2021-08-04 18:32 | NUR ---
Problems reprioritized. Patient report given Abigail MORLEY, questions answered & plan of care reviewed with Abigail MORLEY. Pt. safe and stable at time of change of shift.
[2021-08-04] MEDS: temazepam 15mg capsule PO PRN (19:26)
[2021-08-04] MEDS: acetaminophen 325mg tablet PO PRN (19:27)
[2021-08-04] MEDS: LORazepam 2 mg/ml vial IV PRN (19:27)
[2021-08-04 22:00] VITALS: BP 139/64
[2021-08-05 02:00] VITALS: BP 129/60
[2021-08-05] MEDS: normal saline 1000ml 1,000 ML IV SCH ×3 (03:20→23:20)
[2021-08-05 06:00] VITALS: BP 148/69
[2021-08-05 06:12] LABS: BASOPHILS % (AUTO) 0.2 % (0-1); EOSINOPHILS # (AUTO) 0.3 X10'3 (0-0.9); EOSINOPHILS % (AUTO) 4.3 % (0-6); HEMATOCRIT 32.4 % (42.0-52.0); HEMOGLOBIN 11.2 g/dl (14.0-17.9); LYMPHOCYTES # (AUTO) 1.8 X10'3 (1.1-4.8); LYMPHOCYTES % (AUTO) 24.5 % (21-51); MEAN CORPUSCULAR HEMOGLOBIN 34.1 PG (27.0-31.0); MEAN CORPUSCULAR HGB CONC 34.6 g/dL (33.0-36.5); MEAN CORPUSCULAR VOLUME 98.4 FL (78-98); MEAN PLATELET VOLUME 8.3 FL (7.4-10.4); MONOCYTES # (AUTO) 0.7 X10'3 (0-0.9); MONOCYTES % (AUTO) 9.4 % (2-12); NEUTROPHILS # (AUTO) 4.6 X10'3 (1.8-7.7); NEUTROPHILS % (AUTO) 61.6 % (42-75); PLATELET COUNT 170 X10'3 (140-440); RED BLOOD COUNT 3.29 X10'6 (4.70-6.10); RED CELL DISTRIBUTION WIDTH 13.9 % (11.5-14.5); WHITE BLOOD COUNT 7.5 X10'3 (4.5-11.0)
[2021-08-05 06:26] LABS: ANION GAP 6 (8-16); BLOOD UREA NITROGEN 27 MG/DL (7-18); CHLORIDE 103 MMOL/L (99-107); CREATININE 1.21 MG/DL (0.60-1.10); GLUCOSE 95 MG/DL (70-104); SODIUM 137 MMOL/L (135-145); TOTAL CARBON DIOXIDE 28.5 MMOL/L (24-32)
[2021-08-05 06:27] LABS: ALANINE AMINOTRANSFERASE 28 U/L (12-78); ALBUMIN/GLOBULIN RATIO 0.6 (1.1-1.5); ALKALINE PHOSPHATASE 27 IU/L (46-116); ASPARTATE AMINO TRANSFERASE 39 U/L (10-37); BILIRUBIN,TOTAL 0.6 MG/DL (0.1-1.0); BUN/CREATININE RATIO 22.3 (5.4-32.0); CALCIUM 8.3 MG/DL (8.5-10.1); TOTAL PROTEIN 5.4 G/DL (6.4-8.2); eGFR 57 ML/MIN
--- NOTE | 2021-08-05 06:27 | NUR ---
Problems reprioritized. Patient report given, questions answered & plan of care reviewed with Sapphire MORLEY .
[2021-08-05] MEDS: dextrose 5%-1/4 normal saline 1,000 ML IV SCH ×2 (06:50→21:36)
--- NOTE | 2021-08-05 06:52 | NUR ---
Patient in room PCU 3025. I have received report from Abigail MORLEY and had the opportunity to ask questions and assume patient care.
[2021-08-05] MEDS: CefTRIAXone/D5W-Rocephin 1gm 50 ML IV SCH (07:51)
[2021-08-05] MEDS: docusate sod 100mg capsule PO SCH ×2 (07:56→20:00)
[2021-08-05] MEDS: lactobacillus rhamnosus 10,000 MMU CELLS/CAPSULE PO SCH ×2 (07:56→20:00)
[2021-08-05] MEDS: amLODIPine 5mg tablet PO SCH (07:56)
[2021-08-05] MEDS: lisinopril 20mg tablet PO SCH (07:56)
[2021-08-05] MEDS: K and/or MAG REPLACEMENT MC SCH ×4 (08:00→20:00)
[2021-08-05] MEDS: lactose-reduced food (Ensure Enlive) - 237ml bottle PO SCH ×3 (08:00→18:00)
[2021-08-05 11:00] VITALS: BP 143/66
--- NOTE | 2021-08-05 11:15 | NUR ---
Reassessment: Pt seen by CASE PICKER 08/04 and upgraded to MM5/thin liquids. Pt still w/ low PO intake, avg 23% x 9 meals and 65% x 7 ONS which meets approximately 68% of est energy needs and 85% of est protein needs. Last documented BM 07/27 receiving routine colace and PRN MoM 08/02. D/w RN additional bowel care if MD agreeable as constipation may be impacting PO intake. No change to nutrition recommendations at this time, will continue to monitor. Rec: 1. liberalize to regular/MM5 given poor PO trends 2. Ensure Enlive TIDWM 3. routine bowel care; 9 days constipation 4. weekly wts Addendum: 08/05/21 at [address] Amended: Links added.
[2021-08-05 15:00] VITALS: BP 133/64
[2021-08-05 18:00] VITALS: BP 144/73
--- NOTE | 2021-08-05 18:31 | NUR ---
Problems reprioritized. Patient report given, questions answered & plan of care reviewed with Brittny MORLEY.
[2021-08-05] MEDS: LORazepam 2 mg/ml vial IV PRN (21:36)
[2021-08-05 22:00] VITALS: BP 126/72
[2021-08-06 02:00] VITALS: BP 126/55
[2021-08-06 06:00] VITALS: BP 123/72
--- NOTE | 2021-08-06 06:23 | NUR ---
Problems reprioritized. Patient report given, questions answered & plan of care reviewed with MILLI Peña.
[2021-08-06 07:09] LABS: BASOPHILS % (AUTO) 0.3 % (0-1); EOSINOPHILS # (AUTO) 0.3 X10'3 (0-0.9); EOSINOPHILS % (AUTO) 4.5 % (0-6); HEMATOCRIT 33.4 % (42.0-52.0); HEMOGLOBIN 11.5 g/dl (14.0-17.9); LYMPHOCYTES # (AUTO) 1.5 X10'3 (1.1-4.8); LYMPHOCYTES % (AUTO) 22.2 % (21-51); MEAN CORPUSCULAR HEMOGLOBIN 33.8 PG (27.0-31.0); MEAN CORPUSCULAR HGB CONC 34.3 g/dL (33.0-36.5); MEAN CORPUSCULAR VOLUME 98.6 FL (78-98); MEAN PLATELET VOLUME 8.2 FL (7.4-10.4); MONOCYTES # (AUTO) 0.9 X10'3 (0-0.9); MONOCYTES % (AUTO) 12.4 % (2-12); NEUTROPHILS # (AUTO) 4.2 X10'3 (1.8-7.7); NEUTROPHILS % (AUTO) 60.6 % (42-75); PLATELET COUNT 180 X10'3 (140-440); RED BLOOD COUNT 3.39 X10'6 (4.70-6.10); RED CELL DISTRIBUTION WIDTH 13.6 % (11.5-14.5)
[2021-08-06 07:40] LABS: ALANINE AMINOTRANSFERASE 17 U/L (12-78); ALKALINE PHOSPHATASE 27 IU/L (46-116); ASPARTATE AMINO TRANSFERASE 29 U/L (10-37); BILIRUBIN,TOTAL 0.5 MG/DL (0.1-1.0); BLOOD UREA NITROGEN 23 MG/DL (7-18); BUN/CREATININE RATIO 21.7 (5.4-32.0); CHLORIDE 101 MMOL/L (99-107); CREATININE 1.06 MG/DL (0.60-1.10); GLUCOSE 111 MG/DL (70-104); SODIUM 133 MMOL/L (135-145); TOTAL PROTEIN 5.3 G/DL (6.4-8.2); eGFR 67 ML/MIN
[2021-08-06] MEDS: dextrose 5%-1/4 normal saline 1,000 ML IV SCH ×2 (07:50→20:20)
[2021-08-06] MEDS: K and/or MAG REPLACEMENT MC SCH ×4 (07:56→21:00)
[2021-08-06] MEDS: lisinopril 20mg tablet PO SCH (08:07)
[2021-08-06] MEDS: CefTRIAXone/D5W-Rocephin 1gm 50 ML IV SCH (08:07)
[2021-08-06] MEDS: docusate sod 100mg capsule PO SCH ×2 (08:08→20:59)
[2021-08-06] MEDS: amLODIPine 5mg tablet PO SCH (08:08)
[2021-08-06] MEDS: lactobacillus rhamnosus 10,000 MMU CELLS/CAPSULE PO SCH ×2 (08:08→20:59)
[2021-08-06 09:11] LABS: ALBUMIN 1.8 G/DL (3.4-5.0); ALBUMIN/GLOBULIN RATIO 0.5 (1.1-1.5); ANION GAP 9 (8-16); TOTAL CARBON DIOXIDE 22.8 MMOL/L (24-32)
[2021-08-06] MEDS: lactose-reduced food (Ensure Enlive) - 237ml bottle PO SCH ×3 (10:00→14:04)
--- NOTE | 2021-08-06 10:35 | NUR ---
Verbal order to d/c NS order running at 100;
[2021-08-06 11:26] VITALS: BP 121/68
[2021-08-06 15:00] VITALS: BP 153/87
--- NOTE | 2021-08-06 18:40 | NUR ---
Problems reprioritized. Patient report given to Brittny RN, questions answered & plan of care reviewed with Brittny. Pt. safe and stable at time of change of shift.
[2021-08-06 19:00] VITALS: BP 144/69
[2021-08-06 23:00] VITALS: BP 148/65
[2021-08-07 03:00] VITALS: BP 143/71
[2021-08-07] MEDS: dextrose 5%-1/4 normal saline 1,000 ML IV SCH ×2 (03:19→21:20)
[2021-08-07 06:00] VITALS: BP 146/87
[2021-08-07 06:31] LABS: BASOPHILS % (AUTO) 0.2 % (0-1); EOSINOPHILS # (AUTO) 0.3 X10'3 (0-0.9); EOSINOPHILS % (AUTO) 3.9 % (0-6); HEMATOCRIT 31.5 % (42.0-52.0); HEMOGLOBIN 10.9 g/dl (14.0-17.9); LYMPHOCYTES # (AUTO) 1.5 X10'3 (1.1-4.8); LYMPHOCYTES % (AUTO) 22.8 % (21-51); MEAN CORPUSCULAR HEMOGLOBIN 33.4 PG (27.0-31.0); MEAN CORPUSCULAR HGB CONC 34.7 g/dL (33.0-36.5); MEAN CORPUSCULAR VOLUME 96.3 FL (78-98); MEAN PLATELET VOLUME 8.6 FL (7.4-10.4); MONOCYTES # (AUTO) 0.7 X10'3 (0-0.9); MONOCYTES % (AUTO) 11.2 % (2-12); NEUTROPHILS % (AUTO) 61.9 % (42-75); PLATELET COUNT 204 X10'3 (140-440); RED BLOOD COUNT 3.27 X10'6 (4.70-6.10); RED CELL DISTRIBUTION WIDTH 13.6 % (11.5-14.5); WHITE BLOOD COUNT 6.4 X10'3 (4.5-11.0)
[2021-08-07 06:40] LABS: ALANINE AMINOTRANSFERASE 24 U/L (12-78); ALBUMIN/GLOBULIN RATIO 0.6 (1.1-1.5); ALKALINE PHOSPHATASE 28 IU/L (46-116); ANION GAP 8 (8-16); ASPARTATE AMINO TRANSFERASE 37 U/L (10-37); BILIRUBIN,TOTAL 0.5 MG/DL (0.1-1.0); BLOOD UREA NITROGEN 21 MG/DL (7-18); BUN/CREATININE RATIO 20.2 (5.4-32.0); CALCIUM 8.2 MG/DL (8.5-10.1); CHLORIDE 101 MMOL/L (99-107); CREATININE 1.04 MG/DL (0.60-1.10); GLUCOSE 106 MG/DL (70-104); POTASSIUM 3.8 MMOL/L (3.5-5.1); SODIUM 136 MMOL/L (135-145); TOTAL CARBON DIOXIDE 26.8 MMOL/L (24-32); TOTAL PROTEIN 5.3 G/DL (6.4-8.2); eGFR 68 ML/MIN
[2021-08-07] MEDS: K and/or MAG REPLACEMENT MC SCH ×4 (08:00→19:23)
[2021-08-07] MEDS: CefTRIAXone/D5W-Rocephin 1gm 50 ML IV SCH (08:58)
[2021-08-07] MEDS: lisinopril 20mg tablet PO SCH (08:58)
[2021-08-07] MEDS: docusate sod 100mg capsule PO SCH ×2 (08:58→19:36)
[2021-08-07] MEDS: amLODIPine 5mg tablet PO SCH (08:59)
[2021-08-07] MEDS: lactose-reduced food (Ensure Enlive) - 237ml bottle PO SCH ×3 (08:59→18:32)
[2021-08-07] MEDS: lactobacillus rhamnosus 10,000 MMU CELLS/CAPSULE PO SCH ×2 (08:59→19:36)
[2021-08-07 11:00] VITALS: BP 131/56
[2021-08-07 15:00] VITALS: BP 128/62
[2021-08-07 18:00] VITALS: BP 121/86
[2021-08-07] MEDS ORDERED: LORazepam 2 mg/ml vial IV ONE (19:20)
[2021-08-07] MEDS: LORazepam 2 mg/ml vial IV PRN (22:54)
[2021-08-08 02:00] VITALS: BP 114/92
--- NOTE | 2021-08-08 06:30 | NUR ---
Patient in room PCU 3025. I have received report from Zita MORLEY and had the opportunity to ask questions and assume patient care.
[2021-08-08 07:00] VITALS: BP 145/80
[2021-08-08 07:22] LABS: BASOPHILS % (AUTO) 0.2 % (0-1); EOSINOPHILS # (AUTO) 0.2 X10'3 (0-0.9); EOSINOPHILS % (AUTO) 4.4 % (0-6); HEMATOCRIT 30.9 % (42.0-52.0); HEMOGLOBIN 10.6 g/dl (14.0-17.9); LYMPHOCYTES # (AUTO) 1.3 X10'3 (1.1-4.8); LYMPHOCYTES % (AUTO) 25.7 % (21-51); MEAN CORPUSCULAR HEMOGLOBIN 33.6 PG (27.0-31.0); MEAN CORPUSCULAR HGB CONC 34.3 g/dL (33.0-36.5); MEAN CORPUSCULAR VOLUME 98.1 FL (78-98); MEAN PLATELET VOLUME 8.1 FL (7.4-10.4); MONOCYTES # (AUTO) 0.6 X10'3 (0-0.9); MONOCYTES % (AUTO) 12.1 % (2-12); NEUTROPHILS # (AUTO) 2.9 X10'3 (1.8-7.7); NEUTROPHILS % (AUTO) 57.6 % (42-75); PLATELET COUNT 199 X10'3 (140-440); RED BLOOD COUNT 3.14 X10'6 (4.70-6.10); RED CELL DISTRIBUTION WIDTH 13.5 % (11.5-14.5); WHITE BLOOD COUNT 5.1 X10'3 (4.5-11.0)
[2021-08-08 07:53] LABS: ALANINE AMINOTRANSFERASE 20 U/L (12-78); ALBUMIN 1.9 G/DL (3.4-5.0); ALBUMIN/GLOBULIN RATIO 0.6 (1.1-1.5); ALKALINE PHOSPHATASE 29 IU/L (46-116); ANION GAP 6 (8-16); ASPARTATE AMINO TRANSFERASE 26 U/L (10-37); BILIRUBIN,TOTAL 0.5 MG/DL (0.1-1.0); BLOOD UREA NITROGEN 19 MG/DL (7-18); BUN/CREATININE RATIO 18.3 (5.4-32.0); CHLORIDE 99 MMOL/L (99-107); CREATININE 1.04 MG/DL (0.60-1.10); GLUCOSE 88 MG/DL (70-104); POTASSIUM 3.9 MMOL/L (3.5-5.1); SODIUM 133 MMOL/L (135-145); TOTAL CARBON DIOXIDE 28.3 MMOL/L (24-32); TOTAL PROTEIN 5.2 G/DL (6.4-8.2); eGFR 68 ML/MIN
[2021-08-08] MEDS: K and/or MAG REPLACEMENT MC SCH ×4 (08:00→20:00)
[2021-08-08] MEDS: CefTRIAXone/D5W-Rocephin 1gm 50 ML IV SCH (08:42)
[2021-08-08] MEDS: amLODIPine 5mg tablet PO SCH (08:43)
[2021-08-08] MEDS: lactobacillus rhamnosus 10,000 MMU CELLS/CAPSULE PO SCH ×2 (08:43→20:13)
[2021-08-08] MEDS: docusate sod 100mg capsule PO SCH ×2 (08:43→20:13)
[2021-08-08] MEDS: lisinopril 20mg tablet PO SCH (08:43)
[2021-08-08] MEDS: lactose-reduced food (Ensure Enlive) - 237ml bottle PO SCH ×3 (08:53→14:00)
--- NOTE | 2021-08-08 09:39 | NUR ---
Received report from Orestes MORLEY, assumed care of patient, patient appears asleep in bed no distress noted at this time.
[2021-08-08] MEDS: dextrose 5%-1/4 normal saline 1,000 ML IV SCH ×2 (10:19→22:39)
--- NOTE | 2021-08-08 10:45 | NUR ---
patient awake and has pulled out IV line, removed telmetry monitor and gown. IV resite
[2021-08-08 11:00] VITALS: BP 148/71
[2021-08-08 15:00] VITALS: BP 123/55
--- NOTE | 2021-08-08 17:58 | NUR ---
hourly rounding completed this shift.
[2021-08-08 18:00] VITALS: BP 134/67
--- NOTE | 2021-08-08 18:00 | NUR ---
F/u 08/08: Pt PO remains poor mostly 0-25% overall avg this admit w/ 75-100% Ensure Enlives TIDWM partially meeting needs. Continues on MM5/heart healthy diet per EMR. Noted serum Na 133 this AM; RD d/w RN regarding removal of heart healthy restriction if MD agreeable given serum Na and poor PO trends this admit to assist meeting protein/kcal needs. RN reports pt ate better when fed at breakfast and lunch today; RD requests feeder sign placed on pt door to optimize PO intake. Pt receiving D5/NS at 80ml/hr providing additional 326 kcal/day still partially meeting needs. Noted pt no significant BM size/volume noted this admit only 1ml smear 08/06 per EMR receiving routine colace; IF true 12 days constipation likely impacting PO trends. RD d/w RN regarding additional bowel care if MD agreeable. Will continue to monitor for further nutrition intervention needs. Rec: 1. liberalize to regular/MM5 given poor PO trends; feeder w/ meals to optimize PO intake 2. Ensure Enlive TIDWM; encourage PO 3. routine bowel care; consider additional possible 12 days constipation 1ml smear 08/06 noted in EMR 4. weekly wts Addendum: 08/08/21 at [address] Amended: Links added.
[2021-08-08] MEDS: LORazepam 2 mg/ml vial IV PRN (20:13)
[2021-08-08 22:00] VITALS: BP 141/80
[2021-08-09 02:00] VITALS: BP 161/75
--- NOTE | 2021-08-09 06:10 | NUR ---
Problems reprioritized. Patient report given, questions answered & plan of care reviewed with Jesika MORLEY[].
--- NOTE | 2021-08-09 06:15 | NUR ---
Problems reprioritized. Patient report given, questions answered & plan of care reviewed with MILLI Jaimes.
--- NOTE | 2021-08-09 06:47 | NUR ---
Patient in room PCU 3026. I have received report from Brittny MORLEY and had the opportunity to ask questions and assume patient care.
[2021-08-09 07:00] VITALS: BP 153/68
[2021-08-09] MEDS: lactose-reduced food (Ensure Enlive) - 237ml bottle PO SCH ×4 (08:00→17:11)
[2021-08-09] MEDS: K and/or MAG REPLACEMENT MC SCH ×3 (08:00→20:00)
[2021-08-09] MEDS: lactobacillus rhamnosus 10,000 MMU CELLS/CAPSULE PO SCH ×2 (09:40→20:42)
[2021-08-09] MEDS: amLODIPine 5mg tablet PO SCH (09:41)
[2021-08-09] MEDS: lisinopril 20mg tablet PO SCH (09:43)
[2021-08-09] MEDS: CefTRIAXone/D5W-Rocephin 1gm 50 ML IV SCH (09:44)
[2021-08-09] MEDS: docusate sod 100mg capsule PO SCH ×2 (09:45→20:42)
[2021-08-09] MEDS: dextrose 5%-1/4 normal saline 1,000 ML IV SCH ×2 (09:46→14:01)
[2021-08-09 11:00] VITALS: BP 125/61
[2021-08-09 16:09] VITALS: BP 108/64
[2021-08-09 22:00] VITALS: BP 120/66
[2021-08-10 02:00] VITALS: BP 143/68
[2021-08-10] MEDS: dextrose 5%-1/4 normal saline 1,000 ML IV SCH ×3 (04:06→20:27)
[2021-08-10] MEDS: LORazepam 2 mg/ml vial IV PRN (05:15)
[2021-08-10 07:00] VITALS: BP 139/69
[2021-08-10] MEDS: K and/or MAG REPLACEMENT MC SCH ×2 (08:00→20:00)
[2021-08-10] MEDS: docusate sod 100mg capsule PO SCH ×2 (08:37→20:26)
[2021-08-10] MEDS: lisinopril 20mg tablet PO SCH (08:37)
[2021-08-10] MEDS: CefTRIAXone/D5W-Rocephin 1gm 50 ML IV SCH (08:38)
[2021-08-10] MEDS: amLODIPine 5mg tablet PO SCH (08:38)
[2021-08-10] MEDS: lactobacillus rhamnosus 10,000 MMU CELLS/CAPSULE PO SCH ×2 (08:38→20:27)
[2021-08-10 11:00] VITALS: BP 150/72
[2021-08-10 15:00] VITALS: BP 131/73
[2021-08-10 18:00] VITALS: BP 145/62
[2021-08-10] MEDS: lactose-reduced food (Ensure Enlive) - 237ml bottle PO SCH (18:00)
[2021-08-10 22:00] VITALS: BP 146/58
[2021-08-11] MEDS: LORazepam 2 mg/ml vial IV PRN ×3 (00:15→21:19)
[2021-08-11 02:00] VITALS: BP 127/86
[2021-08-11 07:00] VITALS: BP 129/57
[2021-08-11] MEDS: lactose-reduced food (Ensure Enlive) - 237ml bottle PO SCH ×3 (08:00→18:00)
[2021-08-11] MEDS: K and/or MAG REPLACEMENT MC SCH ×2 (08:00→19:33)
[2021-08-11] MEDS: docusate sod 100mg capsule PO SCH ×2 (08:00→19:25)
[2021-08-11] MEDS: amLODIPine 5mg tablet PO SCH (09:01)
[2021-08-11] MEDS: lactobacillus rhamnosus 10,000 MMU CELLS/CAPSULE PO SCH ×2 (09:02→19:25)
[2021-08-11] MEDS: lisinopril 20mg tablet PO SCH (09:02)
[2021-08-11 09:30] LABS: ALBUMIN 2.3 G/DL (3.4-5.0); ANION GAP 7 (8-16); BLOOD UREA NITROGEN 15 MG/DL (7-18); BUN/CREATININE RATIO 15.2 (5.4-32.0); CALCIUM 8.4 MG/DL (8.5-10.1); CHLORIDE 102 MMOL/L (99-107); CREATININE 0.99 MG/DL (0.60-1.10); GLUCOSE 106 MG/DL (70-104); POTASSIUM 4.1 MMOL/L (3.5-5.1); SODIUM 136 MMOL/L (135-145); TOTAL CARBON DIOXIDE 27.4 MMOL/L (24-32); eGFR 72 ML/MIN
[2021-08-11 09:33] LABS: BASOPHILS % (AUTO) 0.4 % (0-1); EOSINOPHILS # (AUTO) 0.2 X10'3 (0-0.9); EOSINOPHILS % (AUTO) 3.7 % (0-6); HEMATOCRIT 31.6 % (42.0-52.0); HEMOGLOBIN 10.8 g/dl (14.0-17.9); LYMPHOCYTES # (AUTO) 1.2 X10'3 (1.1-4.8); LYMPHOCYTES % (AUTO) 22.2 % (21-51); MEAN CORPUSCULAR HEMOGLOBIN 33.5 PG (27.0-31.0); MEAN CORPUSCULAR HGB CONC 34.3 g/dL (33.0-36.5); MEAN CORPUSCULAR VOLUME 97.7 FL (78-98); MEAN PLATELET VOLUME 7.5 FL (7.4-10.4); MONOCYTES # (AUTO) 0.7 X10'3 (0-0.9); MONOCYTES % (AUTO) 12.8 % (2-12); NEUTROPHILS # (AUTO) 3.2 X10'3 (1.8-7.7); NEUTROPHILS % (AUTO) 60.9 % (42-75); PLATELET COUNT 264 X10'3 (140-440); RED BLOOD COUNT 3.23 X10'6 (4.70-6.10); RED CELL DISTRIBUTION WIDTH 13.7 % (11.5-14.5); WHITE BLOOD COUNT 5.3 X10'3 (4.5-11.0)
[2021-08-11 11:00] VITALS: BP 129/60
[2021-08-11] MEDS: dextrose 5%-1/4 normal saline 1,000 ML IV SCH (14:24)
[2021-08-11 15:00] VITALS: BP 124/58
[2021-08-11 18:00] VITALS: BP 137/53
--- NOTE | 2021-08-11 18:29 | NUR ---
Patient in room PCU 3023. I have received report from Lorena MORLEY and had the opportunity to ask questions and assume patient care.
[2021-08-11 22:00] VITALS: BP 146/77
--- NOTE | 2021-08-11 23:16 | NUR ---
With sitter, we cleaned him, repositioned and changed linens. Placed pillows under his heels.
[2021-08-12] MEDS: dextrose 5%-1/4 normal saline 1,000 ML IV SCH ×2 (01:20→04:55)
[2021-08-12 02:00] VITALS: BP 121/47
[2021-08-12] MEDS: LORazepam 2 mg/ml vial IV PRN ×2 (02:48→20:49)
--- NOTE | 2021-08-12 04:21 | NUR ---
Paged pharmacy to get a new bag for pt.
--- NOTE | 2021-08-12 04:38 | NUR ---
Called pharmacy and they are going to prepare a new bag.
[2021-08-12 06:00] VITALS: BP 143/65
--- NOTE | 2021-08-12 06:34 | NUR ---
Patient in room U 3023. I have received report from Natalia MORLEY traveler and had the opportunity to ask questions and assume patient care.
--- NOTE | 2021-08-12 06:35 | NUR ---
Problems reprioritized. Patient report given, questions answered & plan of care reviewed with Gianna MORLEY.
[2021-08-12] MEDS: K and/or MAG REPLACEMENT MC SCH ×2 (08:00→19:42)
[2021-08-12] MEDS: lactose-reduced food (Ensure Enlive) - 237ml bottle PO SCH ×3 (08:00→17:44)
[2021-08-12] MEDS: amLODIPine 5mg tablet PO SCH (09:37)
[2021-08-12] MEDS: lisinopril 20mg tablet PO SCH (09:37)
[2021-08-12] MEDS: lactobacillus rhamnosus 10,000 MMU CELLS/CAPSULE PO SCH (09:37)
[2021-08-12] MEDS: docusate sod 100mg capsule PO SCH ×2 (09:38→20:08)
--- NOTE | 2021-08-12 10:15 | NUR ---
F/u 08/12: Pt PO remains poor mostly 0-25% overall avg this admit w/ 75-100% Ensure Enlives TIDWM partially meeting needs; needs feeder w/ meals. Continues on MM5/heart healthy diet per EMR. RD d/w RN regarding removal of heart healthy restriction if MD agreeable to hopefully increase PO intake. Pt receiving D5/NS at 80ml/hr providing additional 326 kcal/day still partially meeting needs. Noted pt no significant BM size/volume noted this admit only 1ml smear 08/06 per EMR receiving routine colace; IF true 15 days constipation likely impacting PO trends. BAKARI d/w RN regarding additional bowel care if MD agreeable. Will continue to monitor for further nutrition intervention needs. Rec: 1. liberalize to regular/MM5 given poor PO trends; feeder w/ meals to optimize PO intake 2. Ensure Enlive TIDWM; encourage PO 3. routine bowel care; consider additional possible 15 days constipation 1ml smear 08/06 noted in EMR 4. weekly wts Addendum: 08/12/21 at [address] Amended: Links added.
--- NOTE | 2021-08-12 10:30 | NUR ---
PAGER ID: [phone] MESSAGE: Wilner Grant#[phone]- Pt has no order for 1799, or sitter. Pt upset wants to be DC, wants to eat. States he is in no pain. Lipase 277 (238), Bili 1.5 (2.8) states he is not suicidal. wants to eat. Plz advise. Gianna Lopez [facility] [phone]
--- NOTE | 2021-08-12 11:56 | NUR ---
PRESSURE ULCER EDUCATION: DEFINITION: A pressure ulcer is an area of skin that breaks down when you stay in one position too long. The constant pressure against the skin reduces the blood flow to that area and the affected tissue dies. CAUSES: "Being bedridden or in a wheelchair "Fragile skin "Having a chronic condition, such as diabetes or vascular disease "Inability to move certain parts of your body without assistance "Older age "Incontinence of urine or stool SYMPTOMS: "A reddened area that DOES NOT turn white when pressed on - this can be the beginning of a pressure ulcer "A blister, deep sore or a crater - these can be advanced pressure ulcers FIRST AID: "Relieve the pressure on this area "Keep the area clean and dry "Call your primary doctor if you see any of the above symptoms "DO NOT massage the area "DO NOT use a donut shaped or ring shaped pillow- these actually interfere with the blood flow and cause complications PREVENTION: "Check for pressure ulcers everyday "Change position at least every two hours to relieve pressure "Use items that help relieve pressure- pillows, sheepskin, foam padding, and powders. "Keep skin clean and dry "Eat healthy well balanced meals "Exercise daily IF YOU SEE ANY OF THESE SYMPTOMS WHILE IN THE HOSPITAL - TELL YOUR NURSE IMMEDIATELY. IF YOU SEE ANY OF THESE SYMPTOMS WHILE AT HOME OR HAVE ANY QUESTIONS OR CONCERNS ABOUT PRESSURE ULCERS - CALL YOUR PRIMARY DOCTOR IMMEDIATELY. Addendum: 08/12/21 at 1156 by Bonnie Javier RN Amended: Links added.
[2021-08-12 18:00] VITALS: BP 151/68
--- NOTE | 2021-08-12 18:25 | NUR ---
Problems reprioritized. Patient report given, questions answered & plan of care reviewed with angela MORLEY Traveler.
--- NOTE | 2021-08-12 18:42 | NUR ---
Patient in room PCU 3023. I have received report from Gianna MORLEY and had the opportunity to ask questions and assume patient care.
--- NOTE | 2021-08-12 20:44 | NUR ---
Paged Dr. Mcghee PAGER ID: [phone] MESSAGE: Re:Joseph Rod [id number], Can we order mittens for him? He has pulled out 3 ivs today. Thank you
[2021-08-12 22:00] VITALS: BP 160/99
--- NOTE | 2021-08-12 22:09 | NUR ---
Paged Dr. Mcghee PAGER ID: [phone] MESSAGE: Re Joseph Champion [id number], could I get an order for 2 wrist restraints? Pt is taking off his mittens and going for IV.
--- NOTE | 2021-08-13 01:22 | NUR ---
Stopped the D5W because the pt is agitated and pulling on his IVs. Will restart once pt is calmed down.
[2021-08-13 02:00] VITALS: BP 148/65
[2021-08-13] MEDS: dextrose 5%-1/4 normal saline 1,000 ML IV SCH ×2 (02:20→17:46)
[2021-08-13] MEDS: LORazepam 2 mg/ml vial IV PRN ×2 (02:49→22:21)
--- NOTE | 2021-08-13 06:36 | NUR ---
Problems reprioritized. Patient report given, questions answered & plan of care reviewed with Anila MORLEY and restarted IV fluids.
--- NOTE | 2021-08-13 06:59 | NUR ---
Patient in room PCU 3023. I have received report from Natalia MORLEY and had the opportunity to ask questions and assume patient care.
[2021-08-13 07:00] VITALS: BP 152/78
[2021-08-13] MEDS: K and/or MAG REPLACEMENT MC SCH ×2 (08:00→20:14)
[2021-08-13] MEDS: docusate sod 100mg capsule PO SCH ×2 (08:19→20:11)
[2021-08-13] MEDS: amLODIPine 5mg tablet PO SCH (08:19)
[2021-08-13] MEDS: lisinopril 20mg tablet PO SCH (08:19)
[2021-08-13] MEDS: lactose-reduced food (Ensure Enlive) - 237ml bottle PO SCH ×3 (08:26→17:56)
[2021-08-13 11:00] VITALS: BP 105/59
[2021-08-13 16:00] VITALS: BP 120/46
[2021-08-13 18:00] VITALS: BP 115/59
[2021-08-13 22:00] VITALS: BP 140/82
--- NOTE | 2021-08-13 22:02 | NUR ---
Pt is awake and cooperative with care. Bed pads changed due to incontinents. Pt is attempting to take mittens off. Pt also asking staff for help finding his guns. Will continue to assess and intervene as appropriate.
[2021-08-14 02:00] VITALS: BP 125/78
[2021-08-14] MEDS: dextrose 5%-1/4 normal saline 1,000 ML IV SCH ×2 (03:20→15:50)
[2021-08-14 07:00] VITALS: BP 133/57
--- NOTE | 2021-08-14 07:06 | NUR ---
Patient in room PCU 3023. I have received report from Tamar MORLEY and had the opportunity to ask questions and assume patient care.
[2021-08-14] MEDS: lactose-reduced food (Ensure Enlive) - 237ml bottle PO SCH ×3 (08:00→18:00)
[2021-08-14] MEDS: K and/or MAG REPLACEMENT MC SCH ×2 (08:00→19:28)
[2021-08-14] MEDS: amLODIPine 5mg tablet PO SCH (09:17)
[2021-08-14] MEDS: docusate sod 100mg capsule PO SCH ×2 (09:17→19:28)
[2021-08-14] MEDS: lisinopril 20mg tablet PO SCH (09:18)
[2021-08-14] MEDS: LORazepam 2 mg/ml vial IV PRN ×2 (10:26→22:24)
[2021-08-14 11:00] VITALS: BP 136/64
[2021-08-14 16:00] VITALS: BP 130/59
[2021-08-14 18:00] VITALS: BP 132/49
--- NOTE | 2021-08-14 18:00 | NUR ---
requested from the pharmacy patient's iv fluid D5 1/ NS. will continue to follow up.
--- NOTE | 2021-08-14 18:38 | NUR ---
Problems reprioritized. Patient report given, questions answered & plan of care reviewed with Yumiko MORLEY.
[2021-08-14 22:00] VITALS: BP 132/67
[2021-08-15 02:00] VITALS: BP 103/47
[2021-08-15 06:00] VITALS: BP 98/50
[2021-08-15 06:23] LABS: BASOPHILS % (AUTO) 0.4 % (0-1); EOSINOPHILS # (AUTO) 0.2 X10'3 (0-0.9); EOSINOPHILS % (AUTO) 4.8 % (0-6); HEMATOCRIT 30.3 % (42.0-52.0); HEMOGLOBIN 10.4 g/dl (14.0-17.9); LYMPHOCYTES # (AUTO) 1.1 X10'3 (1.1-4.8); LYMPHOCYTES % (AUTO) 29.1 % (21-51); MEAN CORPUSCULAR HEMOGLOBIN 33.2 PG (27.0-31.0); MEAN CORPUSCULAR HGB CONC 34.3 g/dL (33.0-36.5); MEAN PLATELET VOLUME 7.1 FL (7.4-10.4); MONOCYTES # (AUTO) 0.5 X10'3 (0-0.9); MONOCYTES % (AUTO) 11.9 % (2-12); NEUTROPHILS % (AUTO) 53.8 % (42-75); PLATELET COUNT 231 X10'3 (140-440); RED BLOOD COUNT 3.12 X10'6 (4.70-6.10); RED CELL DISTRIBUTION WIDTH 13.5 % (11.5-14.5); WHITE BLOOD COUNT 3.8 X10'3 (4.5-11.0)
[2021-08-15 06:43] LABS: ALANINE AMINOTRANSFERASE 24 U/L (12-78); ALBUMIN 2.2 G/DL (3.4-5.0); ALBUMIN/GLOBULIN RATIO 0.7 (1.1-1.5); ALKALINE PHOSPHATASE 31 IU/L (46-116); ANION GAP 8 (8-16); ASPARTATE AMINO TRANSFERASE 33 U/L (10-37); BILIRUBIN,TOTAL 0.6 MG/DL (0.1-1.0); BLOOD UREA NITROGEN 13 MG/DL (7-18); BUN/CREATININE RATIO 13.5 (5.4-32.0); CALCIUM 8.7 MG/DL (8.5-10.1); CHLORIDE 104 MMOL/L (99-107); CREATININE 0.96 MG/DL (0.60-1.10); GLUCOSE 102 MG/DL (70-104); POTASSIUM 4.2 MMOL/L (3.5-5.1); SODIUM 134 MMOL/L (135-145); TOTAL CARBON DIOXIDE 22.3 MMOL/L (24-32); TOTAL PROTEIN 5.5 G/DL (6.4-8.2); eGFR 75 ML/MIN
--- NOTE | 2021-08-15 06:45 | NUR ---
Patient in room PCU 3023. I have received report from Yumiko Molina and had the opportunity to ask questions and assume patient care.
[2021-08-15] MEDS: lactose-reduced food (Ensure Enlive) - 237ml bottle PO SCH ×3 (08:00→18:00)
[2021-08-15] MEDS: lisinopril 20mg tablet PO SCH (08:00)
[2021-08-15] MEDS: K and/or MAG REPLACEMENT MC SCH ×2 (08:00→19:49)
[2021-08-15] MEDS: amLODIPine 5mg tablet PO SCH (08:00)
[2021-08-15] MEDS: docusate sod 100mg capsule PO SCH ×2 (09:40→19:50)
[2021-08-15 11:00] VITALS: BP 135/70
[2021-08-15 15:00] VITALS: BP 143/76
[2021-08-15] MEDS: dextrose 5%-1/4 normal saline 1,000 ML IV SCH ×3 (15:06→17:50)
--- NOTE | 2021-08-15 15:21 | NUR ---
Reassessment: Pt remains A/O x 1 and confused per EMR. Patient's PO intake of meals remains poor with mostly 25% PO intake and meal refusals. Pt continues receiving Ensure Enlive TID, documented with average 80% x 6 ONS however did refuse one since 08/13. Per EMR pt receiving max assistance with meals. Pt continues with D5 1/4 NS at 80 mL/hr providing 326 kcal/day. Pt will meet estimated nutrient needs IF able to consistently consume greater than 25% PO intake of meals and continue with current PO intake of ONS with the addition of D5. LBM 08/13 per I&O, receiving routine bowel care with PRN bowel care available last given 08/02. Will continue to follow. Recommendations: 1. liberalize to regular/MM5 given poor PO trends; feeder with meals to optimize PO intake 2. Ensure Enlive TIDWM; encourage PO 3. Routine bowel care 4. Weekly scaled weights Addendum: 08/15/21 at [address] Amended: Links added.
[2021-08-15 18:00] VITALS: BP 139/58
--- NOTE | 2021-08-15 18:43 | NUR ---
Problems reprioritized. Patient report given, questions answered & plan of care reviewed with Yumkio MORLEY.
[2021-08-15] MEDS: LORazepam 2 mg/ml vial IV PRN (21:46)
[2021-08-15 22:00] VITALS: BP 126/52
[2021-08-16 02:00] VITALS: BP 139/58
[2021-08-16] MEDS: dextrose 5%-1/4 normal saline 1,000 ML IV SCH (06:29)
--- NOTE | 2021-08-16 06:35 | NUR ---
Patient in room PCU 3023. I have received report from Yumiko MORLEY and had the opportunity to ask questions and assume patient care.
[2021-08-16 07:00] VITALS: BP 138/54
[2021-08-16] MEDS: lactose-reduced food (Ensure Enlive) - 237ml bottle PO SCH ×3 (08:00→18:00)
[2021-08-16] MEDS: K and/or MAG REPLACEMENT MC SCH ×2 (08:00→20:00)
[2021-08-16] MEDS: docusate sod 100mg capsule PO SCH ×2 (09:12→20:00)
[2021-08-16] MEDS: lisinopril 20mg tablet PO SCH (09:13)
[2021-08-16] MEDS: amLODIPine 5mg tablet PO SCH (09:13)
[2021-08-16 11:00] VITALS: BP 167/57
[2021-08-16 15:00] VITALS: BP 117/48
[2021-08-16] MEDS: acetaminophen 325mg tablet PO PRN (16:10)
[2021-08-16 18:00] VITALS: BP 91/40
[2021-08-16 22:00] VITALS: BP 119/47
[2021-08-17 02:00] VITALS: BP 146/61
[2021-08-17] MEDS: dextrose 5%-1/4 normal saline 1,000 ML IV SCH ×2 (06:20)
--- NOTE | 2021-08-17 06:30 | NUR ---
Patient in room PCU 3023. I have received report from Yumiko MORLEY and had the opportunity to ask questions and assume patient care.
[2021-08-17] MEDS: docusate sod 100mg capsule PO SCH ×2 (08:00→20:46)
[2021-08-17] MEDS: K and/or MAG REPLACEMENT MC SCH ×2 (08:00→20:00)
[2021-08-17] MEDS: lisinopril 20mg tablet PO SCH ×2 (08:00→14:58)
[2021-08-17] MEDS: amLODIPine 5mg tablet PO SCH ×2 (08:00→14:58)
[2021-08-17 08:36] LABS: BASOPHILS % (AUTO) 0.3 % (0-1); EOSINOPHILS % (AUTO) 0.4 % (0-6); HEMATOCRIT 31.3 % (42.0-52.0); HEMOGLOBIN 10.7 g/dl (14.0-17.9); LYMPHOCYTES # (AUTO) 0.6 X10'3 (1.1-4.8); LYMPHOCYTES % (AUTO) 18.5 % (21-51); MEAN CORPUSCULAR HEMOGLOBIN 33.2 PG (27.0-31.0); MEAN CORPUSCULAR HGB CONC 34.2 g/dL (33.0-36.5); MEAN CORPUSCULAR VOLUME 97.1 FL (78-98); MEAN PLATELET VOLUME 7.3 FL (7.4-10.4); MONOCYTES # (AUTO) 0.8 X10'3 (0-0.9); MONOCYTES % (AUTO) 24.8 % (2-12); NEUTROPHILS # (AUTO) 1.8 X10'3 (1.8-7.7); PLATELET COUNT 187 X10'3 (140-440); RED BLOOD COUNT 3.23 X10'6 (4.70-6.10); RED CELL DISTRIBUTION WIDTH 13.7 % (11.5-14.5); WHITE BLOOD COUNT 3.2 X10'3 (4.5-11.0)
[2021-08-17 09:04] LABS: ALANINE AMINOTRANSFERASE 33 U/L (12-78); ALBUMIN 2.2 G/DL (3.4-5.0); ALBUMIN/GLOBULIN RATIO 0.7 (1.1-1.5); ALKALINE PHOSPHATASE 26 IU/L (46-116); ANION GAP 8 (8-16); ASPARTATE AMINO TRANSFERASE 37 U/L (10-37); BILIRUBIN,TOTAL 0.5 MG/DL (0.1-1.0); BLOOD UREA NITROGEN 17 MG/DL (7-18); BUN/CREATININE RATIO 15.5 (5.4-32.0); CALCIUM 8.2 MG/DL (8.5-10.1); CHLORIDE 100 MMOL/L (99-107); GLUCOSE 99 MG/DL (70-104); POTASSIUM 4.1 MMOL/L (3.5-5.1); SODIUM 131 MMOL/L (135-145); TOTAL CARBON DIOXIDE 22.7 MMOL/L (24-32); TOTAL PROTEIN 5.5 G/DL (6.4-8.2); eGFR 64 ML/MIN
[2021-08-17 09:15] LABS: PLATELET ESTIMATE NORMAL; POIKILOCYTOSIS FEW; TOTAL CELLS COUNTED 100
[2021-08-17] MEDS: nystatin 500,000 unit/5ML UD oral suspension PO SCH ×2 (13:00→20:46)
[2021-08-17] MEDS: lactose-reduced food (Ensure Enlive) - 237ml bottle PO SCH ×3 (13:00→18:00)
[2021-08-17] MEDS: piperacillin/tazo 4.5gm/100ml 100 ML IV SCH (17:30)
--- NOTE | 2021-08-17 18:00 | NUR ---
Problems reprioritized. Patient report given, questions answered & plan of care reviewed with Yumiko MORLEY.
--- NOTE | 2021-08-17 18:57 | NUR ---
Received report from Gill RN at 9160, all questions answered at this time. Awaiting patient arrival, report given to noc shift traveler, Padmini MORLEY
[2021-08-17 20:00] VITALS: BP 113/54
[2021-08-17] MEDS: acetaminophen 325mg tablet PO PRN (20:50)
--- NOTE | 2021-08-17 22:49 | NUR ---
patient transferred to med surg floor as ordered. report given by am shift nurse. pt stable. pt transported via bed
[2021-08-17] MEDS: hydrOXYzine 10 MG tablet PO PRN (23:26)
[2021-08-18 01:01] VITALS: BP 120/56
[2021-08-18] MEDS: LORazepam 2 mg/ml vial IV PRN (01:29)
--- NOTE | 2021-08-18 06:52 | NUR ---
Report given to Jennifer MORLEY
[2021-08-18 07:00] VITALS: BP 124/70
[2021-08-18 07:09] LABS: CLARITY,URINE CLEAR (Clear); COLOR,URINE YELLOW (Yellow); UA COLLECTION TYPE NON-SPECIFIED
[2021-08-18 07:10] LABS: GLUCOSE, URINE NEGATIVE (Neg); KETONES,URINE NEGATIVE (Neg); LEUKOCYTE ESTERASE ,URINE NEGATIVE (Neg); NITRITES, URINE NEGATIVE (Neg); OCCULT BLOOD,URINE NEGATIVE (Neg); PROTEIN,URINE 100 mg/dl (Neg); UROBILINOGEN,URINE 0.2 E.U/dL (0.2-1.0)
[2021-08-18 07:11] LABS: BACTERIA,URINE NONE SEEN /HPF (Neg); RBC,URINE NONE SEEN /HPF (0-2); SQUAMOUS EPITHELIAL CELL,UR FEW /LPF (FEW); WBC,URINE 0-4 /HPF (0-4)
[2021-08-18 07:11] LABS: ALANINE AMINOTRANSFERASE 32 U/L (12-78); ALBUMIN 2.4 G/DL (3.4-5.0); ALBUMIN/GLOBULIN RATIO 0.7 (1.1-1.5); ALKALINE PHOSPHATASE 28 IU/L (46-116); ANION GAP 10 (8-16); ASPARTATE AMINO TRANSFERASE 44 U/L (10-37); BILIRUBIN,TOTAL 0.4 MG/DL (0.1-1.0); BLOOD UREA NITROGEN 26 MG/DL (7-18); CALCIUM 8.2 MG/DL (8.5-10.1); CHLORIDE 99 MMOL/L (99-107); CREATININE 1.24 MG/DL (0.60-1.10); GLUCOSE 89 MG/DL (70-104); SODIUM 133 MMOL/L (135-145); TOTAL CARBON DIOXIDE 23.9 MMOL/L (24-32); TOTAL PROTEIN 5.7 G/DL (6.4-8.2); eGFR 56 ML/MIN
[2021-08-18 07:12] LABS: MUCUS STRANDS NONE SEEN /LPF (Neg)
[2021-08-18] MEDS: K and/or MAG REPLACEMENT MC SCH ×2 (08:00→20:00)
[2021-08-18] MEDS: lactose-reduced food (Ensure Enlive) - 237ml bottle PO SCH ×3 (08:00→18:00)
[2021-08-18] MEDS: piperacillin/tazo 4.5gm/100ml 100 ML IV SCH ×3 (09:34→23:27)
[2021-08-18] MEDS: nystatin 500,000 unit/5ML UD oral suspension PO SCH ×3 (10:03→20:39)
[2021-08-18] MEDS: amLODIPine 5mg tablet PO SCH (10:04)
[2021-08-18] MEDS: lisinopril 20mg tablet PO SCH (10:04)
[2021-08-18] MEDS: docusate sod 100mg capsule PO SCH ×2 (10:04→19:15)
[2021-08-18 11:00] VITALS: BP 134/56
[2021-08-18] MEDS: dextrose 5%-1/4 normal saline 1,000 ML IV SCH ×2 (13:17→19:50)
[2021-08-18 20:00] VITALS: BP 126/68
[2021-08-19] VITALS: BP 151/77
--- NOTE | 2021-08-19 06:14 | NUR ---
Handoff report given to Jennifer MORLEY.All questions answered.
[2021-08-19 07:00] VITALS: BP 140/69
[2021-08-19] MEDS: K and/or MAG REPLACEMENT MC SCH ×2 (08:00→20:00)
[2021-08-19] MEDS: docusate sod 100mg capsule PO SCH ×2 (08:00→20:00)
[2021-08-19] MEDS: lisinopril 20mg tablet PO SCH (08:11)
[2021-08-19] MEDS: piperacillin/tazo 4.5gm/100ml 100 ML IV SCH ×2 (08:12→16:41)
[2021-08-19] MEDS: lactose-reduced food (Ensure Enlive) - 237ml bottle PO SCH ×3 (08:12→18:00)
[2021-08-19] MEDS: nystatin 500,000 unit/5ML UD oral suspension PO SCH ×3 (08:12→20:14)
[2021-08-19] MEDS: amLODIPine 5mg tablet PO SCH (08:12)
[2021-08-19 11:00] VITALS: BP 112/59
[2021-08-19] MEDS: dextrose 5%-1/4 normal saline 1,000 ML IV SCH ×2 (13:06→20:09)
--- NOTE | 2021-08-19 13:42 | NUR ---
Reassessment: Pt remains A/O x 1 and confused per EMR. Patient's PO intake of meals remains poor with mostly 0-25% PO intake and meal refusals. Pt continues receiving Ensure Enlive TID, documented with average 72% x 11 ONS. Per EMR pt receiving max assistance with meals. Pt continues with D5 1/4 NS at 80 mL/hr providing 326kcal/day. Pt will meet estimated nutrient needs IF able to consistently consume greater than 25% PO intake of meals and continue with current PO intake of ONS with the addition of D5. LBM 08/16 per I&O, receiving routine bowel care. Will continue to follow. Recommendations: 1. liberalize to regular/MM5 given poor PO trends; feeder with meals to optimize PO intake 2. Ensure Enlive TIDWM; encourage PO 3. Routine bowel care 4. Weekly scaled weights 5. Consider supplemental TF if within plan of care Addendum: 08/19/21 at [address] Amended: Links added.
--- NOTE | 2021-08-19 18:30 | NUR ---
Patient in room BRENNEN 358. I have received report from Jennifer MORLEY and had the opportunity to ask questions and assume patient care.
[2021-08-19 19:00] VITALS: BP 126/52
[2021-08-19] MEDS: acetaminophen 325mg tablet PO PRN (20:18)
[2021-08-19 23:30] VITALS: BP 113/62
[2021-08-20] MEDS: piperacillin/tazo 4.5gm/100ml 100 ML IV SCH ×3 (00:28→16:18)
[2021-08-20] MEDS: dextrose 5%-1/4 normal saline 1,000 ML IV SCH ×2 (03:53→16:18)
[2021-08-20 06:35] LABS: BASOPHILS % (AUTO) 0.2 % (0-1); EOSINOPHILS % (AUTO) 1.5 % (0-6); HEMATOCRIT 27.8 % (42.0-52.0); HEMOGLOBIN 9.7 g/dl (14.0-17.9); LYMPHOCYTES % (AUTO) 48.2 % (21-51); MEAN CORPUSCULAR HEMOGLOBIN 33.6 PG (27.0-31.0); MEAN CORPUSCULAR HGB CONC 34.9 g/dL (33.0-36.5); MEAN CORPUSCULAR VOLUME 96.3 FL (78-98); MEAN PLATELET VOLUME 7.7 FL (7.4-10.4); MONOCYTES # (AUTO) 0.3 X10'3 (0-0.9); MONOCYTES % (AUTO) 14.7 % (2-12); NEUTROPHILS # (AUTO) 0.7 X10'3 (1.8-7.7); NEUTROPHILS % (AUTO) 35.4 % (42-75); PLATELET COUNT 121 X10'3 (140-440); RED BLOOD COUNT 2.89 X10'6 (4.70-6.10); RED CELL DISTRIBUTION WIDTH 13.3 % (11.5-14.5)
--- NOTE | 2021-08-20 06:46 | NUR ---
Problems reprioritized. Patient report given, questions answered & plan of care reviewed with Jennifer MORLEY.
[2021-08-20 07:17] LABS: ALANINE AMINOTRANSFERASE 27 U/L (12-78); ALBUMIN/GLOBULIN RATIO 0.6 (1.1-1.5); ALKALINE PHOSPHATASE 25 IU/L (46-116); ANION GAP 9 (8-16); ASPARTATE AMINO TRANSFERASE 37 U/L (10-37); BILIRUBIN,TOTAL 0.3 MG/DL (0.1-1.0); BLOOD UREA NITROGEN 25 MG/DL (7-18); BUN/CREATININE RATIO 19.2 (5.4-32.0); CALCIUM 7.9 MG/DL (8.5-10.1); CHLORIDE 98 MMOL/L (99-107); GLUCOSE 94 MG/DL (70-104); POTASSIUM 3.7 MMOL/L (3.5-5.1); SODIUM 130 MMOL/L (135-145); TOTAL CARBON DIOXIDE 22.8 MMOL/L (24-32); TOTAL PROTEIN 5.2 G/DL (6.4-8.2); eGFR 53 ML/MIN
[2021-08-20 07:39] LABS: PLATELET ESTIMATE DECREASED; TOTAL CELLS COUNTED 100
[2021-08-20 07:41] LABS: BURR CELLS FEW; SCHISTOCYTES FEW
[2021-08-20 08:00] VITALS: BP 122/56
[2021-08-20] MEDS: K and/or MAG REPLACEMENT MC SCH ×2 (08:00→20:00)
[2021-08-20] MEDS: amLODIPine 5mg tablet PO SCH (08:31)
[2021-08-20] MEDS: docusate sod 100mg capsule PO SCH ×2 (08:31→19:37)
[2021-08-20] MEDS: nystatin 500,000 unit/5ML UD oral suspension PO SCH ×3 (08:31→20:22)
[2021-08-20] MEDS: lisinopril 20mg tablet PO SCH (08:32)
[2021-08-20] MEDS: lactose-reduced food (Ensure Enlive) - 237ml bottle PO SCH ×3 (08:32→18:00)
[2021-08-20 12:00] VITALS: BP 102/50
[2021-08-20] MEDS: acetaminophen 325mg tablet PO PRN (16:18)
[2021-08-20 18:00] VITALS: BP 129/52
--- NOTE | 2021-08-20 18:58 | NUR ---
I have received report from MILLI Rodriguez. and had the opportunity to ask questions and assume patient care.
[2021-08-20] MEDS: hydrOXYzine 10 MG tablet PO PRN (23:38)
[2021-08-21] MEDS: piperacillin/tazo 4.5gm/100ml 100 ML IV SCH (00:08)
[2021-08-21] MEDS: LORazepam 2 mg/ml vial IV PRN (00:57)
[2021-08-21] MEDS: acetaminophen 325mg tablet PO PRN ×2 (00:58→08:38)
--- NOTE | 2021-08-21 06:36 | NUR ---
Problems reprioritized. Patient report given, questions answered & plan of care reviewed with MILLI Rodriguez.
[2021-08-21 07:00] VITALS: BP 131/60
[2021-08-21] MEDS: docusate sod 100mg capsule PO SCH ×2 (08:00→20:17)
[2021-08-21] MEDS: K and/or MAG REPLACEMENT MC SCH ×2 (08:00→20:00)
[2021-08-21] MEDS: lactose-reduced food (Ensure Enlive) - 237ml bottle PO SCH ×3 (08:00→18:00)
[2021-08-21] MEDS: nystatin 500,000 unit/5ML UD oral suspension PO SCH ×3 (08:37→20:18)
[2021-08-21] MEDS: lisinopril 20mg tablet PO SCH (08:38)
[2021-08-21] MEDS: amLODIPine 5mg tablet PO SCH (08:38)
[2021-08-21 09:15] LABS: BASOPHILS % (AUTO) 0.3 % (0-1); EOSINOPHILS # (AUTO) 0.1 X10'3 (0-0.9); EOSINOPHILS % (AUTO) 2.6 % (0-6); HEMATOCRIT 30.2 % (42.0-52.0); HEMOGLOBIN 10.3 g/dl (14.0-17.9); LYMPHOCYTES # (AUTO) 0.7 X10'3 (1.1-4.8); LYMPHOCYTES % (AUTO) 29.9 % (21-51); MEAN CORPUSCULAR HEMOGLOBIN 32.8 PG (27.0-31.0); MEAN CORPUSCULAR HGB CONC 34.3 g/dL (33.0-36.5); MEAN CORPUSCULAR VOLUME 95.6 FL (78-98); MEAN PLATELET VOLUME 8.1 FL (7.4-10.4); MONOCYTES # (AUTO) 0.3 X10'3 (0-0.9); MONOCYTES % (AUTO) 12.9 % (2-12); NEUTROPHILS # (AUTO) 1.3 X10'3 (1.8-7.7); NEUTROPHILS % (AUTO) 54.3 % (42-75); PLATELET COUNT 128 X10'3 (140-440); RED BLOOD COUNT 3.16 X10'6 (4.70-6.10); RED CELL DISTRIBUTION WIDTH 13.5 % (11.5-14.5); WHITE BLOOD COUNT 2.5 X10'3 (4.5-11.0)
[2021-08-21 09:37] LABS: ALANINE AMINOTRANSFERASE 29 U/L (12-78); ALBUMIN 2.3 G/DL (3.4-5.0); ALBUMIN/GLOBULIN RATIO 0.6 (1.1-1.5); ALKALINE PHOSPHATASE 22 IU/L (46-116); ANION GAP 8 (8-16); ASPARTATE AMINO TRANSFERASE 49 U/L (10-37); BILIRUBIN,TOTAL 0.4 MG/DL (0.1-1.0); BLOOD UREA NITROGEN 13 MG/DL (7-18); BUN/CREATININE RATIO 10.5 (5.4-32.0); CALCIUM 8.1 MG/DL (8.5-10.1); CHLORIDE 100 MMOL/L (99-107); CREATININE 1.24 MG/DL (0.60-1.10); GLUCOSE 85 MG/DL (70-104); SODIUM 135 MMOL/L (135-145); TOTAL PROTEIN 5.9 G/DL (6.4-8.2); eGFR 56 ML/MIN
[2021-08-21 10:13] LABS: TOTAL CELLS COUNTED 100
[2021-08-21 10:14] LABS: PLATELET ESTIMATE DECREASED
[2021-08-21 11:00] VITALS: BP 114/53
[2021-08-21] MEDS ORDERED: LORazepam 0.5 MG tablet PO PRN (11:25)
[2021-08-21] MEDS ORDERED: HYDROcodone/acetaminophen 5mg/325mg tablet PO PRN (11:25)
[2021-08-21] MEDS: amox tr/potassium clavulanate 875/125mg TAB PO SCH (18:00)
--- NOTE | 2021-08-21 18:36 | NUR ---
VO from dr quiles to d/c neuro checks and ok for no iv. all meds converted to PO Addendum: 08/21/21 at 1837 by Jennifer Carty RN Amended: Links added.
--- NOTE | 2021-08-21 18:38 | NUR ---
Patient in room [facility]. I have received report from MILLI Rodriguez and had the opportunity to ask questions and assume patient care.
[2021-08-21 20:00] VITALS: BP 122/60
[2021-08-22] MEDS: docusate sod 100mg capsule PO SCH ×2 (06:44→21:00)
[2021-08-22 08:00] VITALS: BP 109/46
[2021-08-22] MEDS: lactose-reduced food (Ensure Enlive) - 237ml bottle PO SCH ×3 (08:00→18:00)
[2021-08-22] MEDS: K and/or MAG REPLACEMENT MC SCH ×2 (08:00→20:00)
[2021-08-22 09:20] LABS: HEMOGLOBIN 11.5 g/dl (14.0-17.9); LYMPHOCYTES # (AUTO) 0.7 X10'3 (1.1-4.8); RED BLOOD COUNT 3.47 X10'6 (4.70-6.10); WHITE BLOOD COUNT 2.6 X10'3 (4.5-11.0)
[2021-08-22 09:22] LABS: BASOPHILS % (AUTO) 0.2 % (0-1); EOSINOPHILS % (AUTO) 1.7 % (0-6); HEMATOCRIT 33.5 % (42.0-52.0); LYMPHOCYTES % (AUTO) 28.3 % (21-51); MEAN CORPUSCULAR HGB CONC 34.2 g/dL (33.0-36.5); MEAN CORPUSCULAR VOLUME 96.5 FL (78-98); MONOCYTES # (AUTO) 0.4 X10'3 (0-0.9); MONOCYTES % (AUTO) 13.9 % (2-12); NEUTROPHILS # (AUTO) 1.4 X10'3 (1.8-7.7); NEUTROPHILS % (AUTO) 55.9 % (42-75); PLATELET COUNT 150 X10'3 (140-440); RED CELL DISTRIBUTION WIDTH 13.5 % (11.5-14.5)
[2021-08-22 09:37] LABS: ALANINE AMINOTRANSFERASE 29 U/L (12-78); ALBUMIN 2.4 G/DL (3.4-5.0); ALBUMIN/GLOBULIN RATIO 0.6 (1.1-1.5); ALKALINE PHOSPHATASE 23 IU/L (46-116); ANION GAP 8 (8-16); ASPARTATE AMINO TRANSFERASE 41 U/L (10-37); BILIRUBIN,TOTAL 0.4 MG/DL (0.1-1.0); BLOOD UREA NITROGEN 16 MG/DL (7-18); BUN/CREATININE RATIO 12.9 (5.4-32.0); CALCIUM 8.5 MG/DL (8.5-10.1); CHLORIDE 102 MMOL/L (99-107); CREATININE 1.24 MG/DL (0.60-1.10); GLUCOSE 91 MG/DL (70-104); POTASSIUM 3.8 MMOL/L (3.5-5.1); SODIUM 137 MMOL/L (135-145); TOTAL CARBON DIOXIDE 26.9 MMOL/L (24-32); TOTAL PROTEIN 6.2 G/DL (6.4-8.2); eGFR 56 ML/MIN
[2021-08-22] MEDS: amLODIPine 5mg tablet PO SCH (10:08)
[2021-08-22] MEDS: lisinopril 20mg tablet PO SCH (10:08)
[2021-08-22] MEDS: amox tr/potassium clavulanate 875/125mg TAB PO SCH ×2 (10:08→16:19)
[2021-08-22] MEDS: nystatin 500,000 unit/5ML UD oral suspension PO SCH ×3 (10:10→21:00)
[2021-08-22 10:42] LABS: PLATELET ESTIMATE NORMAL; POIKILOCYTOSIS FEW; TOTAL CELLS COUNTED 100
[2021-08-22 12:00] VITALS: BP 126/66
--- NOTE | 2021-08-22 15:20 | NUR ---
Reassessment: Pt remains A/O x 1 and confused per EMR. PO intake of meals remains poor with mostly 0-25% despite receiving total assistance with meals per EMR. PO intake of Ensure Enlive decreased to 0% 08/20 to breakfast 08/21 though up to 100% PO intake of ONS at lunch and dinner . Noted pt not longer receiving D5. Overall pt not meeting estimated nutrient needs. IF PO intake does not improve pt would benefit from supplemental EN if within patient's POC. LBM 08/21. Will continue to follow closely. Recommendations: 1. Liberalize to regular/MM5 diet given poor PO intake 2. Ensure Enlive TIDWM 3. Encourage PO intake and assist with meals 4. Routine bowel care 2. Weekly scaled weights 6. Consider supplemental TF if within patient's plan of care Addendum: 08/22/21 at [address] Amended: Links added.
--- NOTE | 2021-08-22 19:10 | NUR ---
Patient in room [facility]. I have received report from MILLI Rodriguez and had the opportunity to ask questions and assume patient care.
[2021-08-22 20:00] VITALS: BP 135/64
[2021-08-23] VITALS: BP 149/70
[2021-08-23 06:28] LABS: BASOPHILS % (AUTO) 0.1 % (0-1); EOSINOPHILS # (AUTO) 0.1 X10'3 (0-0.9); EOSINOPHILS % (AUTO) 3.3 % (0-6); HEMATOCRIT 28.8 % (42.0-52.0); LYMPHOCYTES # (AUTO) 1.1 X10'3 (1.1-4.8); LYMPHOCYTES % (AUTO) 42.1 % (21-51); MEAN CORPUSCULAR HEMOGLOBIN 33.3 PG (27.0-31.0); MEAN CORPUSCULAR HGB CONC 34.8 g/dL (33.0-36.5); MEAN CORPUSCULAR VOLUME 95.7 FL (78-98); MEAN PLATELET VOLUME 8.4 FL (7.4-10.4); MONOCYTES # (AUTO) 0.4 X10'3 (0-0.9); MONOCYTES % (AUTO) 14.7 % (2-12); NEUTROPHILS % (AUTO) 39.8 % (42-75); PLATELET COUNT 145 X10'3 (140-440); RED BLOOD COUNT 3.01 X10'6 (4.70-6.10); RED CELL DISTRIBUTION WIDTH 13.3 % (11.5-14.5); WHITE BLOOD COUNT 2.6 X10'3 (4.5-11.0)
[2021-08-23 06:35] LABS: ALANINE AMINOTRANSFERASE 24 U/L (12-78); ALBUMIN 2.1 G/DL (3.4-5.0); ALBUMIN/GLOBULIN RATIO 0.6 (1.1-1.5); ALKALINE PHOSPHATASE 22 IU/L (46-116); ANION GAP 7 (8-16); ASPARTATE AMINO TRANSFERASE 36 U/L (10-37); BILIRUBIN,TOTAL 0.4 MG/DL (0.1-1.0); BLOOD UREA NITROGEN 21 MG/DL (7-18); CALCIUM 8.3 MG/DL (8.5-10.1); CHLORIDE 104 MMOL/L (99-107); CREATININE 1.05 MG/DL (0.60-1.10); GLUCOSE 81 MG/DL (70-104); POTASSIUM 3.8 MMOL/L (3.5-5.1); SODIUM 138 MMOL/L (135-145); TOTAL CARBON DIOXIDE 26.6 MMOL/L (24-32); TOTAL PROTEIN 5.5 G/DL (6.4-8.2); eGFR 67 ML/MIN
[2021-08-23] MEDS: K and/or MAG REPLACEMENT MC SCH ×2 (06:56→20:00)
[2021-08-23 07:00] LABS: PLATELET ESTIMATE DECREASED; TOTAL CELLS COUNTED 100
[2021-08-23 07:01] LABS: POIKILOCYTOSIS FEW
[2021-08-23 08:00] VITALS: BP 157/82
[2021-08-23] MEDS: docusate sod 100mg capsule PO SCH ×2 (08:00→21:25)
[2021-08-23] MEDS: lactose-reduced food (Ensure Enlive) - 237ml bottle PO SCH ×3 (08:00→18:08)
[2021-08-23] MEDS: nystatin 500,000 unit/5ML UD oral suspension PO SCH ×3 (09:11→21:35)
[2021-08-23] MEDS: lisinopril 20mg tablet PO SCH (09:12)
[2021-08-23] MEDS: amLODIPine 5mg tablet PO SCH (09:12)
[2021-08-23] MEDS: amox tr/potassium clavulanate 875/125mg TAB PO SCH ×2 (09:13→18:08)
[2021-08-23 11:00] VITALS: BP 126/55
--- NOTE | 2021-08-23 18:55 | NUR ---
Problems reprioritized. Patient report given, questions answered & plan of care reviewed with marcia wallace.
[2021-08-23 20:00] VITALS: BP 156/68
[2021-08-24] VITALS: BP 138/68
--- NOTE | 2021-08-24 06:34 | NUR ---
PT HAS BEEN CALM DURING THE NIGHT . CALL LIGHT WITHIN REACH
[2021-08-24 07:31] LABS: BASOPHILS % (AUTO) 0.1 % (0-1); EOSINOPHILS # (AUTO) 0.1 X10'3 (0-0.9); EOSINOPHILS % (AUTO) 4.9 % (0-6); HEMATOCRIT 28.9 % (42.0-52.0); HEMOGLOBIN 9.8 g/dl (14.0-17.9); LYMPHOCYTES % (AUTO) 39.7 % (21-51); MEAN CORPUSCULAR HEMOGLOBIN 32.8 PG (27.0-31.0); MEAN CORPUSCULAR HGB CONC 33.9 g/dL (33.0-36.5); MEAN CORPUSCULAR VOLUME 96.7 FL (78-98); MONOCYTES # (AUTO) 0.3 X10'3 (0-0.9); NEUTROPHILS # (AUTO) 1.1 X10'3 (1.8-7.7); NEUTROPHILS % (AUTO) 42.3 % (42-75); PLATELET COUNT 162 X10'3 (140-440); RED BLOOD COUNT 2.98 X10'6 (4.70-6.10); RED CELL DISTRIBUTION WIDTH 13.5 % (11.5-14.5); WHITE BLOOD COUNT 2.6 X10'3 (4.5-11.0)
[2021-08-24 07:54] LABS: ALANINE AMINOTRANSFERASE 46 U/L (12-78); ALBUMIN 2.2 G/DL (3.4-5.0); ALBUMIN/GLOBULIN RATIO 0.6 (1.1-1.5); ALKALINE PHOSPHATASE 26 IU/L (46-116); ANION GAP 8 (8-16); ASPARTATE AMINO TRANSFERASE 60 U/L (10-37); BILIRUBIN,TOTAL 0.4 MG/DL (0.1-1.0); BLOOD UREA NITROGEN 17 MG/DL (7-18); BUN/CREATININE RATIO 16.3 (5.4-32.0); CALCIUM 8.6 MG/DL (8.5-10.1); CHLORIDE 107 MMOL/L (99-107); CREATININE 1.04 MG/DL (0.60-1.10); GLUCOSE 77 MG/DL (70-104); POTASSIUM 3.7 MMOL/L (3.5-5.1); SODIUM 142 MMOL/L (135-145); TOTAL CARBON DIOXIDE 27.1 MMOL/L (24-32); TOTAL PROTEIN 5.7 G/DL (6.4-8.2); eGFR 68 ML/MIN
[2021-08-24 08:00] VITALS: BP 127/45
[2021-08-24] MEDS: lactose-reduced food (Ensure Enlive) - 237ml bottle PO SCH ×5 (08:00→19:31)
[2021-08-24] MEDS: K and/or MAG REPLACEMENT MC SCH ×2 (08:00→20:00)
[2021-08-24] MEDS: amox tr/potassium clavulanate 875/125mg TAB PO SCH ×2 (08:29→19:23)
[2021-08-24] MEDS: amLODIPine 5mg tablet PO SCH (08:29)
[2021-08-24] MEDS: lisinopril 20mg tablet PO SCH (08:29)
[2021-08-24] MEDS: docusate sod 100mg capsule PO SCH (08:30)
[2021-08-24] MEDS: LORazepam 0.5 MG tablet PO PRN ×2 (08:30→14:11)
[2021-08-24] MEDS: nystatin 500,000 unit/5ML UD oral suspension PO SCH ×2 (08:30→19:29)
[2021-08-24 09:19] LABS: PLATELET ESTIMATE NORMAL; TOTAL CELLS COUNTED 100
[2021-08-24 12:00] VITALS: BP 132/60
[2021-08-24 19:00] VITALS: BP 127/61
[2021-08-25] VITALS: BP 122/60
[2021-08-25] MEDS: lactose-reduced food (Ensure Enlive) - 237ml bottle PO SCH (01:30)
[2021-08-25] MEDS: nystatin 500,000 unit/5ML UD oral suspension PO SCH ×2 (01:39→10:23)
[2021-08-25] MEDS: docusate sod 100mg capsule PO SCH ×2 (01:40→08:00)
[2021-08-25 07:26] VITALS: BP 123/74
[2021-08-25] MEDS: K and/or MAG REPLACEMENT MC SCH (08:00)
[2021-08-25 09:32] LABS: BASOPHILS % (AUTO) 0.2 % (0-1); EOSINOPHILS # (AUTO) 0.2 X10'3 (0-0.9); EOSINOPHILS % (AUTO) 5.3 % (0-6); HEMATOCRIT 31.1 % (42.0-52.0); HEMOGLOBIN 10.7 g/dl (14.0-17.9); LYMPHOCYTES # (AUTO) 0.9 X10'3 (1.1-4.8); LYMPHOCYTES % (AUTO) 30.4 % (21-51); MEAN CORPUSCULAR HEMOGLOBIN 32.9 PG (27.0-31.0); MEAN CORPUSCULAR HGB CONC 34.2 g/dL (33.0-36.5); MEAN CORPUSCULAR VOLUME 96.1 FL (78-98); MEAN PLATELET VOLUME 7.6 FL (7.4-10.4); MONOCYTES # (AUTO) 0.4 X10'3 (0-0.9); MONOCYTES % (AUTO) 11.9 % (2-12); NEUTROPHILS # (AUTO) 1.6 X10'3 (1.8-7.7); NEUTROPHILS % (AUTO) 52.2 % (42-75); PLATELET COUNT 199 X10'3 (140-440); RED BLOOD COUNT 3.24 X10'6 (4.70-6.10); RED CELL DISTRIBUTION WIDTH 13.8 % (11.5-14.5); WHITE BLOOD COUNT 3.1 X10'3 (4.5-11.0)
[2021-08-25 09:39] LABS: ALBUMIN 2.4 G/DL (3.4-5.0); ANION GAP 9 (8-16); BLOOD UREA NITROGEN 18 MG/DL (7-18); BUN/CREATININE RATIO 15.9 (5.4-32.0); CALCIUM 8.9 MG/DL (8.5-10.1); CHLORIDE 106 MMOL/L (99-107); CREATININE 1.13 MG/DL (0.60-1.10); GLUCOSE 130 MG/DL (70-104); POTASSIUM 3.9 MMOL/L (3.5-5.1); SODIUM 141 MMOL/L (135-145); TOTAL CARBON DIOXIDE 26.1 MMOL/L (24-32); eGFR 62 ML/MIN
[2021-08-25] MEDS: amLODIPine 5mg tablet PO SCH (10:22)
[2021-08-25] MEDS: amox tr/potassium clavulanate 875/125mg TAB PO SCH (10:22)
[2021-08-25] MEDS: lisinopril 20mg tablet PO SCH (10:22)
[2021-08-25] MEDS: LORazepam 0.5 MG tablet PO PRN (10:28)
[2021-08-25 12:00] VITALS: BP 125/56
--- NOTE | 2021-08-25 14:19 | NUR ---
Reassessment: Pt remains A/O x 2 and confused per EMR. PO intake of meals remains poor with avg intake 15% of meals despite receiving total assistance with meals per EMR. PO intake of Ensure Enlive remains moderate w/ avg intake 58% x 6. Overall pt not meeting estimated nutrient needs. Pt may benefit from supplemental EN to help meet nutrient needs if within patient's POC. Given energy intake less than 75% of est needs for 7 days and mild muscle weakness, pt meets minimum criteria for malnutrition, MD notified. PO intake LBM 08/22. Will continue to follow closely. Recommendations: 1. Liberalize to regular/MM5 diet given poor PO intake 2. Ensure Enlive TIDWM 3. Encourage PO intake and assist with meals 4. Routine bowel care 5. Weekly scaled weights 6. Consider supplemental TF if within patient's plan of care Addendum: 08/25/21 at [address] Amended: Links added.
--- NOTE | 2021-08-25 15:50 | NUR ---
patient discharged via ambulance. Patient confused but no signs of distress. Called and gave report prior to discharge to Demetria thakur Jackson
== END 2021-08-25 15:05 | DRG 242 ==
LOC: ER 14:24 → ED HOLD 17:51 → PCU 3S 18:30 → SUR 3N 08-17 20:10
PROVIDERS: ADMIT Family Medicine; ATTEND Family Medicine
PROC: 0JH606Z Insertion of Pacemaker, Dual Chamber into Chest Subcutaneous Tissue and Fascia, Open Approach (ICD-10-PCS; principal; 2021-07-27)
PROC: 02HK3JZ Insertion of Pacemaker Lead into Right Ventricle, Percutaneous Approach (ICD-10-PCS; 2021-07-27)
PROC: 02H63JZ Insertion of Pacemaker Lead into Right Atrium, Percutaneous Approach (ICD-10-PCS; 2021-07-27)
DX: I44.2 Atrioventricular block, complete (principal); I21.A1 Myocardial infarction type 2; I62.01 Nontraumatic acute subdural hemorrhage; J69.0 Pneumonitis due to inhalation of food and vomit; N17.0 Acute kidney failure with tubular necrosis; A41.9 Sepsis, unspecified organism; I13.0 Hypertensive heart and chronic kidney disease with heart failure and stage 1 through stage 4 chronic kidney disease, or unspecified chronic kidney disease; E87.1 Hypo-osmolality and hyponatremia; E44.0 Moderate protein-calorie malnutrition; Z60.2 Problems related to living alone; W18.39XA Other fall on same level, initial encounter; Z20.822 Contact with and (suspected) exposure to COVID-19; R13.10 Dysphagia, unspecified; D64.9 Anemia, unspecified; F03.90 Unspecified dementia, unspecified severity, without behavioral disturbance, psychotic disturbance, mood disturbance, and anxiety; I50.9 Heart failure, unspecified; N18.9 Chronic kidney disease, unspecified; R29.6 Repeated falls; Z79.899 Other long term (current) drug therapy; Y93.89 Activity, other specified; Y92.098 Other place in other non-institutional residence as the place of occurrence of the external cause; Z68.24 Body mass index [BMI] 24.0-24.9, adult; Y99.8 Other external cause status
CPT/HCPCS: 33208; 36415; 70450; 71045; 80048; 80053; 80061; 81001; 83605; 83735; 83880; 84145; 84484; 85007; 85025; 85027; 85610; 85730; 87040; 87081; 87635; 92508; 92616; 93005; 93308; 96365; 96368; 97110; 97116; 97161; 97530; 97535; 99152; 99153; 99291; A4565; A4620; A6258; A6449; C1785; C1898; G0378; J0690; J0696; J1265; J2060; J2250; J2543; J3010; J3486; J3490; J7030; J7042